=== PATIENT | male | born 1955 | race Caucasian/White ===

== ENCOUNTER 2018-03-18 11:31 | Inpatient (IN) | payer OTHER ==
[2018-03-18] VITALS (9 sets, daily range): BP systolic 131–171; BP diastolic 72–95
[~2018-03-18] VITALS: Ht 190.5 cm; Wt 197.4 kg
[2018-03-18] MEDS ORDERED: RT-ALBUTEROL SULF 2.5 MG/3 ML PRE-MIX VIAL ONE (11:42)
[2018-03-18] MEDS ORDERED: RT-ALBUTEROL/IPRATROPIUM 3 ML (DUONEB) VIAL ONE (11:42)
[2018-03-18] MEDS ORDERED: methylPREDNISolone 125 MG (Solu-MEDROL) VIAL IV STA (11:45)
[2018-03-18] MEDS ORDERED: RT-IPRATROPIUM (ATROVENT) 0.5MG/2.5ML AMP IH ONE (11:45)
[2018-03-18] MEDS ORDERED: RT-ALBUTEROL SULF 2.5 MG/3 ML PRE-MIX VIAL INH STA (11:45)
--- NOTE | 2018-03-18 11:51 | ED Respiratory ---
General Stated Complaint: SOB Source: patient Exam Limitations: no limitations (DARINEL HENDERSON MD) History of Present Illness Date Seen by Provider: Mar 18, 2018 Time Seen by Provider: 11:38 Initial Comments Here by EMS with acute respiratory failure. Showed up at his doctor's office and had O2 sat at 70 percent. Placed on oxygen and then mask and was given DuoNeb. This did not significant changes oxygen. EMS was summoned. Patient was found to have O2 sats in the 80s. Ultimately EMS gave another treatment and initiated CPAP which did improve his oxygenation. Patient reports he had fevers last night and has had increasing cough and respiratory problems. Denies nausea or vomiting. Does smoke and continues to smoke. Has lower extremity edema but states it is not different than typical. Does complain of a sore in his mouth. Timing/Duration: yesterday, getting worse Severity: moderate, severe Prior Episodes/Possible Cause: occasional episodes Modifying Factors: Improves With Albuterol Nebulizer, Improves With Oxygen, Improves With Rest Associated Symptoms: No chest pain/soreness; cough, fever/chills; No headache; nasal congestion, nasal drainage, shortness of breath, wheezing (DARINEL HENDERSON MD) Allergies and Home Medications Allergies Coded Allergies: Penicillins (Verified Allergy, Unknown, 03/18/18) amitriptyline (Verified Allergy, Unknown, 03/18/18) iodine (Verified Allergy, Unknown, 03/18/18) Patient Home Medication List Home Medication List Reviewed: Yes (DARINEL HENDERSON MD) Review of Systems Review of Systems Constitutional: see HPI; No chills; fever EENTM: see HPI, nose congestion; No throat pain Respiratory: cough, short of breath, wheezing Cardiovascular: No chest pain; edema Gastrointestinal: No abdominal pain, No nausea, No vomiting Genitourinary: no symptoms reported Musculoskeletal: no symptoms reported Skin: no symptoms reported (DARINEL HENDERSON MD) All Other Systems Reviewed Negative Unless Noted: Yes (DARINEL HENDERSON MD) Past Pcthfqp-Xrtlgu-Sewlci Hx Past Med/Social Hx: Reviewed Nursing Past Med/Soc Hx (DARINEL HENDERSON MD) Patient Social History Alcohol Use: Denies Use Recreational Drug Use: No Smoking Status: Current Everyday Smoker Recent Foreign Travel: No Contact w/Someone Who Travel: No (DARINEL HENEDRSON MD) Family Medical History Reviewed Nursing Family Hx (DARINEL HENDERSON MD) No Pertinent Family Hx (DARINEL HENDERSON MD) Physical Exam Vital Signs - First Documented 03/18/18 03/18/18 11:38 12:05 Temp 97.8 Pulse 66 Resp 30 B/P (MAP) 106/69 (81) Pulse Ox 100 O2 Delivery NIV Bilevel O2 Flow Rate 35.00 FiO2 35 (LEELA JO APRN) Capillary Refill : (DARINEL HENDERSON MD) Height: '" Weight: lbs. oz. kg; BMI Method: General Appearance: WD/WN, moderate distress, obese HEENT: PERRL/EOMI, pharynx normal Neck: full range of motion, supple Respiratory: decreased breath sounds, wheezing, expiration, inspiration Cardiovascular: regular rate, rhythm, no murmur Gastrointestinal: non tender, soft Extremities: non-tender, normal inspection Neurologic/Psychiatric: alert, oriented x 3 Skin: normal color, warm/dry (DARINEL HENDERSON MD) Focused Exam Lactate Level 03/18/18 12:05: Lactic Acid Level 1.10 (LEELA JO APRN) Lactic Acid Level Laboratory Tests Test 03/18/18 12:05 Lactic Acid Level 1.10 MMOL/L (0.50-2.00) (LEELA JO APRN) Progress/Results/Core Measures Suspected Sepsis SIRS Temperature: Pulse: Respiratory Rate: Laboratory Tests 03/18/18 11:45: Blood Pressure / Mean: 03/18/18 11:45: Laboratory Tests 03/18/18 11:45: (DARINEL HENDERSON MD) Results/Orders Lab Results Laboratory Tests Test 03/18/18 11:45 03/18/18 11:51 03/18/18 12:05 03/18/18 12:20 Range/Units White Blood Count 13.2 H 4.3-11.0 10^3/uL Red Blood Count 5.00 4.35-5.85 10^6/uL Hemoglobin 13.3 13.3-17.7 G/DL Hematocrit 42 40-54 % Mean Corpuscular Volume 83 80-99 FL Mean Corpuscular Hemoglobin 27 25-34 PG Mean Corpuscular Hemoglobin Concent 32 32-36 G/DL Red Cell Distribution Width 15.7 H 10.0-14.5 % Platelet Count 350 130-400 10^3/uL Mean Platelet Volume 9.5 7.4-10.4 FL Neutrophils (%) (Auto) 86 H 42-75 % Lymphocytes (%) (Auto) 5 L 12-44 % Monocytes (%) (Auto) 8 0-12 % Eosinophils (%) (Auto) 1 0-10 % Basophils (%) (Auto) 0 0-10 % Neutrophils # (Auto) 11.3 H 1.8-7.8 X 10^3 Lymphocytes # (Auto) 0.7 L 1.0-4.0 X 10^3 Monocytes # (Auto) 1.1 H 0.0-1.0 X 10^3 Eosinophils # (Auto) 0.1 0.0-0.3 10^3/uL Basophils # (Auto) 0.0 0.0-0.1 10^3/uL Neutrophils % (Manual) 82 % Lymphocytes % (Manual) 6 % Monocytes % (Manual) 7 % Eosinophils % (Manual) 0 % Basophils % (Manual) 0 % Band Neutrophils 5 % Blood Morphology Comment NORMAL Prothrombin Time 13.6 12.2-14.7 SEC INR Comment 1.0 0.8-1.4 Activated Partial Thromboplast Time 33 24-35 SEC Blood Gas Puncture Site RRAD Blood Gas Patient Temperature 97.8 Arterial Blood pH 7.32 *L 7.37-7.43 Arterial Blood Partial Pressure CO2 52 H 35-45 MMHG Arterial Blood Partial Pressure O2 84 79-93 MMHG Arterial Blood HCO3 26 23-27 MMOL/L Arterial Blood Total CO2 27.8 21.0-31.0 MMOL/L Arterial Blood Oxygen Saturation 97 94-100 % Arterial Blood Base Excess 0.7 -2.5-2.5 MMOL/L Corky Test Y Blood Gas Ventilator Setting NO Blood Gas Inspired Oxygen 40% Lactic Acid Level 1.10 0.50-2.00 MMOL/L Sodium Level 129 L 135-145 MMOL/L Potassium Level 5.0 3.6-5.0 MMOL/L Chloride Level 94 L 98-107 MMOL/L Carbon Dioxide Level 27 21-32 MMOL/L Anion Gap 8 5-14 MMOL/L Blood Urea Nitrogen 13 7-18 MG/DL Creatinine 0.96 0.60-1.30 MG/DL Estimat Glomerular Filtration Rate > 60 BUN/Creatinine Ratio 14 Glucose Level 113 H 70-105 MG/DL Calcium Level 8.5 8.5-10.1 MG/DL Corrected Calcium 9.0 8.5-10.1 MG/DL Total Bilirubin 0.7 0.1-1.0 MG/DL Aspartate Amino Transf (AST/SGOT) 14 5-34 U/L Alanine Aminotransferase (ALT/SGPT) 11 0-55 U/L Alkaline Phosphatase 154 H 40-136 U/L B-Type Natriuretic Peptide 56.8 <100.0 PG/ML Total Protein 7.3 6.4-8.2 GM/DL Albumin 3.4 3.2-4.5 GM/DL (LEELA JO APRN) Micro Results Microbiology 03/18/18 Influenza Types A,B Antigen (DASHA) - Final, Complete (LEELA JO APRN) My Orders Orders - LEELA JO APRN Albuterol Pre-Mix Nebs (Rt) (Proventil (03/18/18 12:45) Svn Small Volume Nebulizer (03/18/18 12:34) (LEELA JO APRN) Medications Given in ED Current Medications Medications Dose Ordered Sig/Mima Route Start Time Stop Time Status Last Admin Dose Admin Albuterol/ Ipratropium 3 ml STK-MED ONCE .ROUTE 03/18/18 11:42 03/18/18 11:45 DC 03/18/18 12:04 3 ML (LEELA JO APRN) Vital Signs/I&O 03/18/18 03/18/18 03/18/18 11:38 11:38 12:05 Temp 97.8 Pulse 66 70 Resp 30 30 B/P (MAP) 106/69 (81) Pulse Ox 100 100 98 O2 Delivery NIV Bilevel NIV/Bilevel O2 Flow Rate 35.00 FiO2 35 (LEELA JO APRN) Vital Signs/I&O Capillary Refill : (DARINEL HENDERSON MD) Progress Note : Progress Note Seen and evaluated on arrival by EMS. Converted to BiPAP at 16/8. Advised so to adjusted to keep sats greater than 94 percent. Sepsis protocol initiated including labs, chest x-ray, UA, blood cultures and lactic acid. Solu-Medrol 125 mg IV initiated. Continuous one-hour treatment initiated due to severe distress. Monitor patient. (DARINEL HEDNERSON MD) Departure Communication (Admissions) Time/Spoke to Admitting Phy: 13:04 [phone]-pt has received about 20-30 minutes of his hour-long albuterol treatment. He is moving around so much that fell off of the BiPAP and dumped on the bed. So I ordered an additional 7.5 mg of albuterol to replace the spilled portion. 1303- he does have air movement in his lungs though it is diminished and with some coarse wheezing. Cardiomegaly and vascular congestion noted on x-ray. 20 mg of Lasix IV given despite his normal BNP. Continues on BiPAP. Rocephin to be given here. I discussed the case with Dr. Bowser we will admit the patient on pneumonia protocol using Rocephin and Zithromax as he does not have any recent antibiotic prescriptions. (LEELA JO APRN) Impression Primary Impression: COPD exacerbation Additional Impressions: Right lower lobe pneumonia Qualified Codes: J18.1 - Lobar pneumonia, unspecified organism Respiratory acidosis Disposition: ADMITTED INPATIENT Condition: Stable Admissions Decision to Admit Reason: Admit from ER (General) Decision to Admit/Date: Mar 18, 2018 Time/Decision to Admit Time: 12:36 (LEELA JO APRN) Departure-Patient Inst. Referrals: NO,LOCAL PHYSICIAN (PCP/Family) Primary Care Physician DARINEL HENDERSON MD Mar 18, 2018 11:51 LEELA JO APRN Mar 18, 2018 12:36
[2018-03-18 11:55] LABS: BASOPHILS % (AUTO) 0 % (0-10); EOSINOPHILS # (AUTO) 0.1 10^3/uL (0.0-0.3); EOSINOPHILS % (AUTO) 1 % (0-10); HEMATOCRIT 42 % (40-54); HEMOGLOBIN 13.3 G/DL (13.3-17.7); LYMPHOCYTES # (AUTO) 0.7 X 10^3 (1.0-4.0); LYMPHOCYTES % (AUTO) 5 % (12-44); MEAN CORPUSCULAR HEMOGLOBIN 27 PG (25-34); MEAN CORPUSCULAR HGB CONC 32 G/DL (32-36); MEAN CORPUSCULAR VOLUME 83 FL (80-99); MEAN PLATELET VOLUME 9.5 FL (7.4-10.4); MONOCYTES # (AUTO) 1.1 X 10^3 (0.0-1.0); MONOCYTES % (AUTO) 8 % (0-12); NEUTROPHILS # (AUTO) 11.3 X 10^3 (1.8-7.8); NEUTROPHILS % (AUTO) 86 % (42-75); PLATELET COUNT 350 10^3/uL (130-400); RED CELL DISTRIBUTION WIDTH 15.7 % (10.0-14.5); WHITE BLOOD COUNT 13.2 10^3/uL (4.3-11.0)
[2018-03-18 12:09] LABS: ABG BASE EXCESS 0.7 MMOL/L (-2.5-2.5); ABG OXYGEN SATURATION 97 % (94-100); ABG PCO2 52 MMHG (35-45); ABG PO2 84 MMHG (79-93); ABG TCO2 27.8 MMOL/L (21.0-31.0)
[2018-03-18 12:10] LABS: PROTHROMBIN TIME PATIENT 13.6 SEC (12.2-14.7)
[2018-03-18 12:11] LABS: ALLENS TEST Y; INSPIRED O2 40%; PATIENT TEMP 97.8; VENTILATOR NO
[2018-03-18 12:12] LABS: ABG PH 7.32 (7.37-7.43)
[2018-03-18 12:16] LABS: BAND NEUTROPHILS 5 %; BASOPHILS % (MANUAL) 0 %; EOSINOPHILS % (MANUAL) 0 %; LYMPHOCYTES % (MANUAL) 6 %; MONOCYTES % (MANUAL) 7 %; NEUTROPHILS % (MANUAL) 82 %
[2018-03-18 12:17] LABS: RBC MORPH NORMAL
[2018-03-18 12:44] LABS: ALANINE AMINOTRANSFERASE 11 U/L (0-55); ALBUMIN 3.4 GM/DL (3.2-4.5); ALKALINE PHOSPHATASE 154 U/L (40-136); BILIRUBIN,TOTAL 0.7 MG/DL (0.1-1.0); BUN/CREATININE RATIO 14; CALCIUM 8.5 MG/DL (8.5-10.1); CARBON DIOXIDE 27 MMOL/L (21-32); CHLORIDE 94 MMOL/L (98-107); CREATININE SERUM 0.96 MG/DL (0.60-1.30); GFR ESTIMATED > 60; GLUCOSE 113 MG/DL (70-105); SODIUM 129 MMOL/L (135-145); TOTAL PROTEIN 7.3 GM/DL (6.4-8.2)
--- NOTE | 2018-03-18 12:49 | Diagnostic Imaging Report ---
EXAMINATION: Portable erect AP chest at 12:23 p.m. INDICATION: Shortness of breath. FINDINGS: There are no prior studies available for comparison. The heart is enlarged. The central pulmonary vascularity is also somewhat prominent and there may be an element of mild pulmonary congestion present. There does seem to be mild atelectasis/infiltrate in the right lung base. The lungs are otherwise clear. The mediastinum is not widened. The osseous structures are intact. IMPRESSION: There is cardiomegaly. The prominence of the central pulmonary vascularity also suggests there is an element of mild pulmonary congestion present. There may be a small amount of atelectasis/infiltrate in the right lung base as well. A followup exam should be considered for further evaluation. Dictated by: Dictated on workstation # [id number]
[2018-03-18] MEDS: RT-ALBUTEROL SULF 2.5 MG/3 ML PRE-MIX VIAL INH SCH ×2 (12:55→13:04)
[2018-03-18] MEDS ORDERED: FUROSEMIDE 40 MG/4 ML INJ (LASIX) ONE (13:40)
[2018-03-18] MEDS ORDERED: RT-ALBUTEROL/IPRATROPIUM 3 ML (DUONEB) VIAL INH PRN (14:45)
[2018-03-18] MEDS ORDERED: AZITHROMYCIN 500 MG/NS 250 ML IVPB IV SCH ×2 (15:00)
[2018-03-18] MEDS ORDERED: FLU QUADRIvalent (5+ YOA) 2018-2019 (AFLURIA) 0.5 ML IM ONE (15:15)
[2018-03-18] MEDS ORDERED: CATHETER FLUSH 10 ML SYR IV PRN (15:15)
[2018-03-18] MEDS ORDERED: NICOTINE 21 MG (NICODERM) PATCH TD SCH (15:30)
[2018-03-18] MEDS ORDERED: ACET-2267 PO (15:44)
[2018-03-18] MEDS ORDERED: FURO40TA4 PO (15:44)
[2018-03-18] MEDS ORDERED: POTA10TA10 PO (15:44)
[2018-03-18] MEDS ORDERED: SENN1TAB7 PO (15:44)
[2018-03-18] MEDS ORDERED: GABA600T2 PO (15:44)
[2018-03-18] MEDS ORDERED: ATOR80TA76 PO (15:44)
[2018-03-18] MEDS ORDERED: GLIP5TAB13 PO (15:44)
[2018-03-18] MEDS ORDERED: METO100T12 PO (15:44)
[2018-03-18] MEDS ORDERED: [UNRECOGNIZED DRUG - CODE] TP (15:44)
[2018-03-18] MEDS ORDERED: METF-399 PO (15:44)
[2018-03-18] MEDS ORDERED: ETOD500T PO (15:44)
[2018-03-18] MEDS ORDERED: INSU100V6 SQ (15:44)
[2018-03-18] MEDS ORDERED: OMEP20CA12 PO (15:44)
[2018-03-18] MEDS ORDERED: cefTRIAXone 1 GM/NS 50 ML IVPB IV SCH ×2 (16:00)
--- NOTE | 2018-03-18 16:22 | History & Physical-Hospitalist ---
History of Present Illness HPI/Chief Complaint Pt is a 62yoCM with a PMH of HTN, IDDMII, COPD who presented to the ER via EMS from Dr Blackburn's office for hypoxia. He did not provide any history and deferred to his son so he could sleep. His son states that he recently moved here as he was not doing well in [place]. He apparently drove himself to Dr Blackburn's office in his motorize wheelchair because he was SOB. He was found to be hypoxic in the 70s on room air there and placed on oxygen and given a duoneb which only improve dhis sats to the 80s. EMS was called and they placed him in CPAP and brought him to the ER where he was transitioned to BiPAP. His son states he's been sick since 03/15 with cough and orthopnea. Source: patient Date Seen 03/18/18 Time Seen by a Provider: 16:14 Attending Physician Torres Clement MD PCP No,Local Physician Referring Physician Date of Admission Mar 18, 2018 at 13:21 Home Medications & Allergies Home Medications Reviewed patient Home Medication Reconciliation performed by pharmacy medication reconciliations correctional maintenance technician and/or nursing. Patients Allergies have been reviewed. Allergies Allergies Coded Allergies Penicillins (Verified Allergy, Unknown, 03/18/18) amitriptyline (Verified Allergy, Unknown, 03/18/18) iodine (Verified Allergy, Unknown, 03/18/18) Past Awuhyhh-Pcisxb-Dkfuoi Hx Past Med/Social Hx: Reviewed Nursing Past Med/Soc Hx Patient Social History Alcohol Use: Denies Use Recreational Drug Use: No Smoking Status: Current Everyday Smoker Type Used: Cigarettes 2nd Hand Smoke Exposure: Yes Physical Abuse Screen: No Sexual Abuse: No Recent Foreign Travel: No Contact w/other who traveled: No Recent Hopitalizations: Yes Recent Infectious Disease Expo: No Immunizations Up To Date Date of Pneumonia Vaccine: Nov 28, 2016 Seasonal Allergies Seasonal Allergies: No Past Medical History Surgeries: Orthopedic Respiratory: COPD Currently Using CPAP: No Currently Using BIPAP: No Cardiac: Hypertension Musculoskeletal: Chronic Back Pain Endocrine: Diabetes, Insulin dep Are Your Blood Sugars Over 250: No Hearing Impairment: Hard of Hearing History of Blood Disorders: No (hx dvt's ) Family History Reviewed Nursing Family Hx Neoplasm G8 BROTHER daughter No Pertinent Family Hx Review of Systems ROS-Unable to Obtain: Very limited due to patient's refusal to participate Constitutional: No chills, No fever Respiratory: cough, dyspnea on exertion, orthopnea Physical Exam Physical Exam Vital Signs Vital Signs - First Documented 03/18/18 03/18/18 11:38 12:05 Temp 97.8 Pulse 66 Resp 30 B/P (MAP) 106/69 (81) Pulse Ox 100 O2 Delivery NIV Bilevel O2 Flow Rate 35.00 FiO2 35 Capillary Refill : Less Than 3 Seconds Height, Weight, BMI Height: 6'3.00" Weight: 435lbs. 3.0oz. [id number]; 54.4 BMI Method:Stated General Appearance: Chronically ill, Obese HEENT: PERRL/EOMI, Moist Mucous Membranes Neck: Non Tender, Supple Respiratory: No Respiratory Distress, Decreased Breath Sounds Cardiovascular: Regular Rate, Rhythm, No Murmur Gastrointestinal: Normal Bowel Sounds, Non Tender, Soft Extremity: Normal Capillary Refill, No Calf Tenderness Neurologic/Psychiatric: Alert, Oriented x3, Normal Mood/Affect Skin: Normal Color, Warm/Dry Results Results/Procedures Labs Laboratory Tests 03/18/18 11:45 03/18/18 12:20 Patient resulted labs reviewed. Imaging: Reviewed Imaging Report Assessment/Plan Admission Diagnosis Acute hypoxic respiratory failure Admission Status: Inpatient Order (span 2 midnights) Reason for Inpatient Admission: On BiPAP Diagnosis/Problems Diagnosis/Problems (1) Acute respiratory failure Status: Acute Assessment & Plan: On BiPAP Continue abx and steroids Will diuresis as well given vascular congestion on CXR Qualifiers: Respiratory failure complication: hypoxia and hypercapnia Qualified Codes: J96.01 - Acute respiratory failure with hypoxia; J96.02 - Acute respiratory failure with hypercapnia (2) Right lower lobe pneumonia Status: Acute Assessment & Plan: Continue CAP coverage Qualifiers: Pneumonia type: due to unspecified organism Qualified Codes: J18.1 - Lobar pneumonia, unspecified organism (3) Essential (primary) hypertension Status: Chronic Assessment & Plan: Continue on home meds (4) Insulin dependent diabetes mellitus Assessment & Plan: Continue home levemir 10U SSI (5) COPD exacerbation Status: Acute Assessment & Plan: Continue steroids On BiPAP Clinical Quality Measures DVT/VTE Risk/Contraindication: Risk Factor Score Per Nursin RFS Level Per Nursing on Admit: 4+=Very High TORRES CLEMENT MD Mar 18, 2018 16:22
[2018-03-18] MEDS ORDERED: FUROSEMIDE 40 MG/4 ML INJ (LASIX) IVP NR (16:30)
[2018-03-18 16:59] LABS: ABG BASE EXCESS 3.2 MMOL/L (-2.5-2.5); ABG OXYGEN SATURATION 96 % (94-100); ABG PCO2 60 MMHG (35-45); ABG PO2 80 MMHG (79-93)
[2018-03-18 17:00] LABS: ABG PH 7.31 (7.37-7.43); ALLENS TEST YES-POS
[2018-03-18 17:01] LABS: INSPIRED O2 40%; PATIENT TEMP 97.6; VENTILATOR NO
[2018-03-18] MEDS ORDERED: PROPOFOL DRIP (ICU) 100 ML IV ONE (17:43)
[2018-03-18] MEDS ORDERED: ENOXAPARIN 60 MG/0.6 ML (LOVENOX) SYR SC SCH (18:00)
[2018-03-18] MEDS ORDERED: methylPREDNISolone 125 MG (Solu-MEDROL) VIAL IV SCH (18:00)
[2018-03-18] MEDS ORDERED: RT-ALBUTEROL/IPRATROPIUM 3 ML (DUONEB) VIAL INH SCH (18:00)
[2018-03-18] MEDS ORDERED: PROPOFOL DRIP (ICU) 100 ML IV SCH (18:15)
--- NOTE | 2018-03-18 18:18 | Discharge Summary-Hospitalist ---
Diagnosis/Chief Complaint Date of Admission Mar 18, 2018 at 13:21 Date of Discharge Discharge Date: Mar 18, 2018 Admission Diagnosis Acute hypoxic respiratory failure Discharge Diagnosis (1) Acute respiratory failure Status: Acute Assessment & Plan: On BiPAP Continue abx and steroids Will diuresis as well given vascular congestion on CXR (2) Right lower lobe pneumonia Status: Acute Assessment & Plan: Continue CAP coverage (3) Essential (primary) hypertension Status: Chronic Assessment & Plan: Continue on home meds (4) Insulin dependent diabetes mellitus Assessment & Plan: Continue home levemir 10U SSI (5) COPD exacerbation Status: Acute Assessment & Plan: Continue steroids On BiPAP Discharge Summary Discharge Physical Exam Allergies: Coded Allergies: Penicillins (Verified Allergy, Unknown, 03/18/18) amitriptyline (Verified Allergy, Unknown, 03/18/18) iodine (Verified Allergy, Unknown, 03/18/18) Vitals & I&Os Vital Signs Date Time Temp Pulse Resp B/P (MAP) Pulse Ox O2 Delivery O2 Flow Rate FiO2 03/18/18 17:00 70 25 171/95 (120) 95 NIV Bilevel 40.00 03/18/18 16:00 97.3 03/18/18 16:00 35 General Appearance: Chronically ill, Obese Respiratory: Other (on vent) Cardiovascular: Regular Rate, Rhythm, No Murmur Gastrointestinal: Normal Bowel Sounds, Soft Neurologic/Psychiatric: Other (sedated on propofol) Hospital Course Pt is a 62yoCM with a PMH of COPD, IDDMII, and morbid obesity who presented to the ER in respiratory distress after presenting to a local PCP's office for SOB. He was found to be hypoxic in the 70s there and EMS was called. He was placed on CPAP en route to the hospital and transitioned to BiPAP in the ER. He was admitted to the ICU for respiratory failure. He was maintained on BiPAP but remained lethargic on it and repeat ABG showed worsening CO2. Decision was made to intubate at that time. Intubated was performed by Dr Moses. Due to standards analyst being out of town we discussed transfer to facility with pulmonology for vent management. I discussed this case with Dr Yarbrough at [phone] who accepted patient in transfer. He was transferred in stable condition via EMS. Labs (last 24 hrs) Laboratory Tests 03/18/18 11:45: White Blood Count 13.2H, Red Blood Count 5.00, Hemoglobin 13.3, Hematocrit 42, Mean Corpuscular Volume 83, Mean Corpuscular Hemoglobin 27, Mean Corpuscular Hemoglobin Concent 32, Red Cell Distribution Width 15.7H, Platelet Count 350, Mean Platelet Volume 9.5, Neutrophils (%) (Auto) 86H, Lymphocytes (%) (Auto) 5L , Monocytes (%) (Auto) 8, Eosinophils (%) (Auto) 1, Basophils (%) (Auto) 0, Neutrophils # (Auto) 11.3H, Lymphocytes # (Auto) 0.7L, Monocytes # (Auto) 1.1H, Eosinophils # (Auto) 0.1, Basophils # (Auto) 0.0, Neutrophils % (Manual) 82, Lymphocytes % (Manual) 6, Monocytes % (Manual) 7, Eosinophils % (Manual) 0, Basophils % (Manual) 0, Band Neutrophils 5, Blood Morphology Comment NORMAL, Prothrombin Time 13.6, INR Comment 1.0, Activated Partial Thromboplast Time 33 03/18/18 11:51: Blood Gas Puncture Site RRAD, Blood Gas Patient Temperature 97.8, Arterial Blood pH 7.32*L, Arterial Blood Partial Pressure CO2 52H, Arterial Blood Partial Pressure O2 84, Arterial Blood HCO3 26, Arterial Blood Total CO2 27.8, Arterial Blood Oxygen Saturation 97, Arterial Blood Base Excess 0.7, Corky Test Y, Blood Gas Ventilator Setting NO, Blood Gas Inspired Oxygen 40% 03/18/18 12:05: Lactic Acid Level 1.10 03/18/18 12:20: Sodium Level 129L, Potassium Level 5.0, Chloride Level 94L, Carbon Dioxide Level 27, Anion Gap 8, Blood Urea Nitrogen 13, Creatinine 0.96, Estimat Glomerular Filtration Rate > 60, BUN/Creatinine Ratio 14, Glucose Level 113H, Calcium Level 8.5, Corrected Calcium 9.0, Total Bilirubin 0.7, Aspartate Amino Transf (AST/SGOT) 14, Alanine Aminotransferase (ALT/SGPT) 11, Alkaline Phosphatase 154H, B-Type Natriuretic Peptide 56.8, Total Protein 7.3, Albumin 3.4 03/18/18 16:54: Blood Gas Puncture Site RT BRACH, Blood Gas Patient Temperature 97.6, Arterial Blood pH 7.31*L, Arterial Blood Partial Pressure CO2 60H, Arterial Blood Partial Pressure O2 80, Arterial Blood HCO3 29H, Arterial Blood Total CO2 31.0, Arterial Blood Oxygen Saturation 96, Arterial Blood Base Excess 3.2H, Corky Test YES-POS, Blood Gas Ventilator Setting NO, Blood Gas Inspired Oxygen 40% Microbiology 03/18/18 Influenza Types A,B Antigen (DASHA) - Final, Complete Patient resulted labs reviewed. Pending Labs Microbiology Date/Time Source Procedure Growth Status 03/18/18 12:20 Nasopharynx Influenza Types A,B Antigen (DASHA) - Final Complete Laboratory Tests 03/18/18 11:45: White Blood Count 13.2, Red Blood Count 5.00, Hemoglobin 13.3, Hematocrit 42, Mean Corpuscular Volume 83, Mean Corpuscular Hemoglobin 27, Mean Corpuscular Hemoglobin Concent 32, Red Cell Distribution Width 15.7, Platelet Count 350, Mean Platelet Volume 9.5, Neutrophils (%) (Auto) 86, Lymphocytes (%) (Auto) 5, Monocytes (%) (Auto) 8, Eosinophils (%) (Auto) 1, Basophils (%) (Auto) 0, Neutrophils # (Auto) 11.3, Lymphocytes # (Auto) 0.7, Monocytes # (Auto) 1.1, Eosinophils # (Auto) 0.1, Basophils # (Auto) 0.0, Neutrophils % (Manual) 82, Lymphocytes % (Manual) 6, Monocytes % (Manual) 7, Eosinophils % (Manual) 0, Basophils % (Manual) 0, Band Neutrophils 5, Blood Morphology Comment NORMAL, Prothrombin Time 13.6, INR Comment 1.0, Activated Partial Thromboplast Time 33 03/18/18 11:51: Blood Gas Puncture Site RRAD, Blood Gas Patient Temperature 97.8, Arterial Blood pH 7.32, Arterial Blood Partial Pressure CO2 52, Arterial Blood Partial Pressure O2 84, Arterial Blood HCO3 26, Arterial Blood Total CO2 27.8, Arterial Blood Oxygen Saturation 97, Arterial Blood Base Excess 0.7, Corky Test Y, Blood Gas Ventilator Setting NO, Blood Gas Inspired Oxygen 40% 03/18/18 12:05: Lactic Acid Level 1.10 03/18/18 12:20: Sodium Level 129, Potassium Level 5.0, Chloride Level 94, Carbon Dioxide Level 27, Anion Gap 8, Blood Urea Nitrogen 13, Creatinine 0.96, Estimat Glomerular Filtration Rate > 60, BUN/Creatinine Ratio 14, Glucose Level 113, Calcium Level 8.5, Corrected Calcium 9.0, Total Bilirubin 0.7, Aspartate Amino Transf (AST/ SGOT) 14, Alanine Aminotransferase (ALT/SGPT) 11, Alkaline Phosphatase 154, B- Type Natriuretic Peptide 56.8, Total Protein 7.3, Albumin 3.4 03/18/18 16:54: Blood Gas Puncture Site RT BRACH, Blood Gas Patient Temperature 97.6, Arterial Blood pH 7.31, Arterial Blood Partial Pressure CO2 60, Arterial Blood Partial Pressure O2 80, Arterial Blood HCO3 29, Arterial Blood Total CO2 31.0, Arterial Blood Oxygen Saturation 96, Arterial Blood Base Excess 3.2, Corky Test YES-POS, Blood Gas Ventilator Setting NO, Blood Gas Inspired Oxygen 40% Imaging: Reviewed Imaging Report Discussion & Recommendations Discharge Planning: >30 minutes discharge planning Discharge Home Medications: Active Scripts Active Reported Docusate Sodium-Senna Tablet (Sennosides/Docusate Sodium) 1 Each Tablet 1 Tab PO BID Lantus (Insulin Glargine,Hum.rec.anlog) 100 Unit/1 Ml Vial 10 Unit SQ DAILY Moisturizing Lotion (Vit E Acetate/Gly/Dimeth/Water) 473 Ml Lotion TP DAILY Potassium Chloride 10 Meq Tablet.er 20 Meq PO BID TAKES 2 (10MEQ) TABLETS Omeprazole 20 Mg Capsule.dr 20 Mg PO BID Metoprolol Tartrate 100 Mg Tablet 50 Mg PO BID TAKES 1/2 (100MG) TABLET Metformin HCl 1,000 Mg Tablet 1,000 Mg PO BID Glipizide 5 Mg Tablet 15 Mg PO BID TAKES 3 (5MG) TABLETS Gabapentin 600 Mg Tablet 600 Mg PO TID Furosemide 40 Mg Tablet 40 Mg PO 0800,1200 Etodolac 500 Mg Tablet 500 Mg PO TID PRN Atorvastatin Calcium 80 Mg Tablet 80 Mg PO HS Tylenol Extra Strength (Acetaminophen) 500 Mg Tablet 1,000 Mg PO Q6H PRN Instructions to patient/family Please see electronic discharge instructions given to patient. Clinical Quality Measures DVT/VTE Risk/Contraindication: Risk Factor Score Per Nursin RFS Level Per Nursing on Admit: 4+=Very High Problem Qualifiers (1) Acute respiratory failure: Respiratory failure complication: hypoxia and hypercapnia Qualified Codes: J96.01 - Acute respiratory failure with hypoxia; J96.02 - Acute respiratory failure with hypercapnia (2) Right lower lobe pneumonia: Pneumonia type: due to unspecified organism Qualified Codes: J18.1 - Lobar pneumonia, unspecified organism TORRES OLSEN MD Mar 18, 2018 18:18
--- NOTE | 2018-03-18 18:35 | Procedure/Intervention Note ---
Procedure Note Vital Signs Vital Signs Date Time Temp Pulse Resp B/P (MAP) Pulse Ox O2 Delivery O2 Flow Rate FiO2 03/18/18 17:00 70 25 171/95 (120) 95 NIV Bilevel 40.00 03/18/18 16:00 97.3 03/18/18 16:00 35 Procedure Note Called emergently to ICU 94 patient and wraps for distress requiring intubation. Patient was seen by me earlier. Noted to have increasing CO2 and declining PO2 on ABG. I did discuss at length with the patient and family regarding intubation. Initially earlier he did not want intubation but patient has been intubated multiple times in the past per he and the family. On further discussion with the patient, he reports that he does not want to have intubation and long-term but is okay with short-term intubation for treatment of medical condition. Currently he has pneumonia and Bi-PAP is not improving his situation with concerns of further worsening of his pneumonia. This was explained to him and the family and he has elected for intubation. Intubated under emergent condition for respiratory failure Patient will be difficult intubation due to body habitus, large neck and tongue. Intubated via video scope with 8.0 tube at 26 cm at the lips with mild difficulty. Patient's O2 saturations remained 100 percent throughout intubation. Sedation with 20 mg of etomidate and paralytic with 200 mg of succinylcholine. Postintubation sedation with 5 mg of Versed IV and 100 mg of fentanyl IV. 50 mg of rocuronium given until transfer to propofol drip with initial 40 mg bolus and titrated to sedation. Tolerated procedure well with no complications. Postintubation chest x-ray performed. Tube in good position. NG tube in good position. Worsening lung markings noted bilaterally. DARINEL HENDERSON MD Mar 18, 2018 18:35
--- NOTE | 2018-03-18 18:50 | Diagnostic Imaging Report ---
Clinical indication: Patient post intubation. Exam: Portable chest x-ray supine view. Comparison: Portable chest x-ray dated 03/18/2018. Findings: There is stable cardiomegaly with pulmonary vascular congestion. There is patchy airspace opacities throughout both lungs which has increased in the bilateral lung apical regions which may represent lung infiltrates. The right costophrenic angle region is not imaged on this exam and can't be evaluated. There is no pleural effusion as visualized. Interval placement of ET tube with tip seen at the T4 level. Orogastric feeding tube is noted which is below the level of the diaphragm distally with its distal portion not completely visualized. The remainder of this exam shows no significant interval change compared to the prior study of comparison. Impression: 1: Interval placement of ET tube and orogastric feeding tube which appear to be in good position. 2: There is interval progression of bilateral lung airspace opacity/infiltrates. 3: Again seen cardiomegaly with pulmonary vascular congestion. Dictated by: Dictated on workstation # [id number]
[2018-03-18 18:52] LABS: CLARITY,URINE SLIGHTLY CLOUDY; COLOR,URINE YELLOW; GLUCOSE, URINE (UA) NEGATIVE (NEGATIVE); KETONES,URINE NEGATIVE (NEGATIVE); LEUKOCYTE ESTERASE ,URINE NEGATIVE (NEGATIVE); NITRITE,URINE NEGATIVE (NEGATIVE); PH,URINE 5 (5-9); PROTEIN,URINE 2+ (NEGATIVE); UROBILINOGEN,URINE NORMAL (NORMAL)
[2018-03-18 19:04] LABS: BILIRUBIN,URINE 2+ (NEGATIVE)
[2018-03-18 19:05] LABS: BACTERIA,URINE NEGATIVE /HPF; RBC,URINE RARE /HPF; WBC,URINE RARE /HPF
[2018-03-18] MEDS ORDERED: fentaNYL INJECTION 1,250 MCG in NS (IVPB) 250 ML IV SCH (19:30)
[2018-03-18] MEDS ORDERED: ETOMIDATE IV SOLN 20 MG/10 ML VIAL IV ONE (20:54)
[2018-03-18] MEDS ORDERED: MIDAZOLAM 5 MG/5 ML (VERSED) VIAL INJ ONE (20:54)
[2018-03-18] MEDS ORDERED: SUCCINYLCHOLINE INJ 100 MG/5 ML SYR INJ ONE (20:54)
[2018-03-18] MEDS ORDERED: inSUlin ASPART (NovoLOG) 1 UNIT/0.01 ML (CHARGE PER UNIT) SC SCH (21:00)
[2018-03-18] MEDS ORDERED: inSUlin DETERMIR 1 UNIT/0.01 ML (LEVEMIR) CHARGE PER UNIT SQ SCH (21:00)
[2018-03-18] MEDS ORDERED: CATHETER FLUSH 10 ML SYR IV SCH (22:00)
[2018-03-19] MEDS ORDERED: NICOTINE PATCH REMOVAL TP SCH (08:59)
== END 2018-03-18 20:55 | disposition short-term general hospital (02) | DRG 189 ==
LOC: EDUNIT# 11:31 → ER 11:38 → ICU 13:21
PROVIDERS: ADMIT Family Medicine; ATTEND Family Medicine
DX: J96.01 Acute respiratory failure with hypoxia (principal); J18.1 Lobar pneumonia, unspecified organism; J44.1 Chronic obstructive pulmonary disease with (acute) exacerbation; J44.0 Chronic obstructive pulmonary disease with (acute) lower respiratory infection; Z68.43 Body mass index [BMI] 50.0-59.9, adult; Z66 Do not resuscitate; I10 Essential (primary) hypertension; E11.9 Type 2 diabetes mellitus without complications; E66.01 Morbid (severe) obesity due to excess calories; Z79.4 Long term (current) use of insulin; Z88.0 Allergy status to penicillin; F17.210 Nicotine dependence, cigarettes, uncomplicated
CPT/HCPCS: 36415; 71045; 80053; 81000; 82805; 83605; 83880; 84478; 85007; 85027; 85610; 85730; 87040; 87070; 87081; 87088; 87205; 87804; 94002; 94640; 94660; 94799; 96374; 96375

== ENCOUNTER 2019-05-04 17:58 | Inpatient (IN) | payer MEDICARE, OTHER ==
[~2019-05-04] VITALS: Ht 190.5 cm; Wt 197.4 kg
[~2019-05-04 17:58] MED LIST: ACET-2267 PO; ATOR80TA76 PO; ETOD500T PO; FURO40TA4 PO; GBPN600T PO; GLIP5TAB13 PO; INSU100V6 SQ; METF-399 PO; METO100T12 PO; OMEP-280 PO; POTA10TA10 PO; SENN-229 PO; [UNRECOGNIZED DRUG - CODE] TP
[2019-05-04 18:14] LABS: BASOPHILS % (AUTO) 0 % (0-10); EOSINOPHILS # (AUTO) 0.1 10^3/uL (0.0-0.3); EOSINOPHILS % (AUTO) 1 % (0-10); HEMATOCRIT 40 % (40-54); HEMOGLOBIN 13.7 G/DL (13.3-17.7); LYMPHOCYTES # (AUTO) 1.7 X 10^3 (1.0-4.0); LYMPHOCYTES % (AUTO) 15 % (12-44); MEAN CORPUSCULAR HEMOGLOBIN 31 PG (25-34); MEAN CORPUSCULAR HGB CONC 34 G/DL (32-36); MEAN CORPUSCULAR VOLUME 92 FL (80-99); MEAN PLATELET VOLUME 9.1 FL (7.4-10.4); MONOCYTES # (AUTO) 0.9 X 10^3 (0.0-1.0); MONOCYTES % (AUTO) 8 % (0-12); NEUTROPHILS # (AUTO) 8.3 X 10^3 (1.8-7.8); NEUTROPHILS % (AUTO) 75 % (42-75); PLATELET COUNT 297 10^3/uL (130-400); RED CELL DISTRIBUTION WIDTH 15.2 % (10.0-14.5)
[2019-05-04] MEDS ORDERED: methylPREDNISolone 125 MG (Solu-MEDROL) VIAL IV STA (18:21)
[2019-05-04] MEDS ORDERED: NS IV 1000 ML 1,000 ML IV ONE (18:21)
[2019-05-04] MEDS ORDERED: RT-ALBUTEROL/IPRATROPIUM 3 ML (DUONEB) VIAL INH ONE (18:30)
[2019-05-04] MEDS ORDERED: DEXAMETHASONE 4 MG/ML SDV (DECADRON) IH ONE (18:30)
[2019-05-04 18:39] LABS: ALANINE AMINOTRANSFERASE 12 U/L (0-55); ALBUMIN 3.6 GM/DL (3.2-4.5); ALKALINE PHOSPHATASE 119 U/L (40-136); BILIRUBIN,TOTAL 0.4 MG/DL (0.1-1.0); BUN/CREATININE RATIO 10; CALCIUM 8.9 MG/DL (8.5-10.1); CARBON DIOXIDE 26 MMOL/L (21-32); CHLORIDE 93 MMOL/L (98-107); CREATININE SERUM 0.71 MG/DL (0.60-1.30); GFR ESTIMATED > 60; GLUCOSE 181 MG/DL (70-105); MAGNESIUM 1.6 MG/DL (1.6-2.4); POTASSIUM 4.1 MMOL/L (3.6-5.0); SODIUM 129 MMOL/L (135-145)
[2019-05-04 18:40] LABS: CREATINE KINASE 46 U/L (30-200)
[2019-05-04 18:45] LABS: INR 0.9 (0.8-1.4); PROTHROMBIN TIME PATIENT 12.9 SEC (12.2-14.7)
[2019-05-04 18:47] LABS: BILIRUBIN,URINE NEGATIVE (NEGATIVE); CLARITY,URINE CLEAR; COLOR,URINE YELLOW; GLUCOSE, URINE (UA) NEGATIVE (NEGATIVE); KETONES,URINE NEGATIVE (NEGATIVE); LEUKOCYTE ESTERASE ,URINE NEGATIVE (NEGATIVE); NITRITE,URINE NEGATIVE (NEGATIVE); PH,URINE 6.5 (5-9); PROTEIN,URINE TRACE (NEGATIVE)
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
[2019-05-04 18:54] LABS: BACTERIA,URINE TRACE /HPF; HYALINE CASTS, URINE RARE /LPF; SQUAMOUS EPITHELIAL CELL,UR RARE /HPF
[2019-05-04 18:59] LABS: AMPHETAMINE SCREEN, URINE NEGATIVE (NEGATIVE); BARBITURATE SCREEN URINE NEGATIVE (NEGATIVE); BENZODIAZEPINES SCREEN URINE NEGATIVE (NEGATIVE); CANNABINOID SCREEN, URINE NEGATIVE (NEGATIVE); COCAINE SCREEN URINE NEGATIVE (NEGATIVE); METHADONE STAT NEGATIVE (NEGATIVE); METHAMPHETAMINE SCREEN URINE S NEGATIVE (NEGATIVE); OPIATE SCREEN URINE NEGATIVE (NEGATIVE); OXYCODONE STAT NEGATIVE (NEGATIVE); PROPOXYPHENE STAT NEGATIVE (NEGATIVE); TRICYCLIC ANTIDEPRESSANTS SCRE POSITIVE (NEGATIVE)
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
--- NOTE | 2019-05-04 19:31 | Diagnostic Imaging Report ---
PROCEDURE: CT thoracic and lumbar spine without contrast. TECHNIQUE: Multiple contiguous axial images were obtained through the thoracic and lumbar spine without the use of intravenous contrast. Sagittal and coronal reformations were then performed. INDICATION: Fall. Bilateral hip and back pain. COMPARISON: None. FINDINGS: Mild reversal of the normal lumbar lordosis. Minimal retrolisthesis of L3 on L4 and L4 on L5. Alignment is otherwise normal. Chronic height loss of L2 due to a Schmorl's node. Vertebral body heights are otherwise preserved. No acute fracture. Moderate to advanced degenerative endplate changes at L2-L5. No high-grade spinal canal narrowing is evident on soft tissue windows. Moderate atherosclerotic calcifications including a normal caliber abdominal aorta. Calcified granulomas in the partially visualized lungs. The visualized paravertebral soft tissues are otherwise unremarkable. The visualized pelvis is intact. IMPRESSION: No acute CT findings in the thoracic or lumbar spine. Chronic findings as above. Dictated by: Dictated on workstation # [id number]
--- NOTE | 2019-05-04 19:49 | Diagnostic Imaging Report ---
EXAM: CHEST 1 VIEW, AP/PA ONLY INDICATION: Fall. COMPARISON: 03/18/2018. FINDINGS: Interval removal of the ETT and NGT. Cardiomegaly with pulmonary vascular congestion is similar to the prior exam. No new focal pulmonary opacity. No pleural effusion or pneumothorax. No acute osseous findings. IMPRESSION: Stable cardiomegaly and pulmonary vascular congestion. No acute findings. Dictated by: Dictated on workstation # [id number]
--- NOTE | 2019-05-04 20:03 | Diagnostic Imaging Report ---
PROCEDURE: CT pelvis without contrast. TECHNIQUE: Multiple contiguous axial images were obtained through the pelvis without the use of intravenous contrast. Sagittal and coronal reformations were performed. Auto Exposure Controls were utilized during the CT exam to meet ALARA standards for radiation dose reduction. INDICATION: Fall, pain. COMPARISON: Imaging from same date. FINDINGS: A left total hip arthroplasty is present. Superior dislocation of the left hip arthroplasty is present. However, the femoral component appears to be within the left supra-acetabular region and has reformed the adjacent pelvis and there appears to be surrounding overlying heterotopic ossification. Severe degenerative changes of the right hip are noted with severe joint space narrowing, moderate osteophyte formation, slight flattening of the femoral head and significant subchondral cyst formation. The sacroiliac joints are intact. The pubic symphysis is intact. Quijano catheter is in place. IMPRESSION: 1. Superior dislocation of a left total hip arthroplasty. However, given appearance, it is felt that this is chronic in nature. 2. Severe end-stage degenerative changes of the right hip joint. 3. No acute fracture. Dictated by: Dictated on workstation # [id number]
[2019-05-04] MEDS ORDERED: ENOXAPARIN 100 MG/1 ML (LOVENOX) SYR SC ONE (20:45)
[2019-05-04] MEDS ORDERED: ENOXAPARIN 80 MG/0.8 ML (LOVENOX) SYR SC ONE (20:45)
--- NOTE | 2019-05-04 21:30 | NUR ---
YUMIKO RODRIGUEZ admitted to room 408-1, with an admitting diagnosis of COPD AND RECENT FALL, on 05/04/19 from ED, accompanied by STAFF. YUMIKO RODRIGUEZ introduced to surroundings, call light, bed controls, phone, TV, temperature control, lights, meal times, smoking policy, visitor policy, side rail policy, bathrooms and showers. Patient Rights given to patient in the handbook. YUMIKO RODRIGUEZ verbalizes understanding that [facility] is not responsible for the loss or damage to any personal effects or valuables that are kept in the patients posession during their hospitalization. YUMIKO RODRIGUEZ verbalizes understanding of Interdisciplinary Patient Education. Patient and/or family were informed about the Rapid Response Team and its purpose.
[2019-05-04 22:26] VITALS: BP 174/92
[2019-05-04] MEDS ORDERED: CATHETER FLUSH 10 ML SYR IV PRN (22:30)
[2019-05-05] VITALS (7 sets, daily range): BP systolic 90–196; BP diastolic 55–92
[2019-05-05] MEDS: NS IV 1000 ML 1,000 ML IV SCH ×3 (00:20→20:50)
[2019-05-05] MEDS: methylPREDNISolone 125 MG (Solu-MEDROL) VIAL IV SCH ×2 (00:20→05:41)
[2019-05-05] MEDS: fentaNYL INJECTION 100 MCG/2 ML AMP IV PRN ×2 (00:29→21:58)
--- NOTE | 2019-05-05 01:13 | NUR ---
MARYANA WALTON/ELIAS TAN RT TO ASSESS OR REEVALUATE IN 72 HOURS OR NEEDED. O2 TO KEEP SAT GREATER THAN 90% Addendum: 05/05/19 at 0113 by ALEXA MCKENZIE RT Amended: Links added.
[2019-05-05] MEDS ORDERED: RT-ALBUTEROL/IPRATROPIUM 3 ML (DUONEB) VIAL INH PRN (01:15)
[2019-05-05] MEDS: inSUlin ASPART (NovoLOG) 1 UNIT/0.01 ML (CHARGE PER UNIT) SC SCH ×4 (05:41→21:11)
[2019-05-05] MEDS: CATHETER FLUSH 10 ML SYR IV SCH ×3 (05:42→21:12)
[2019-05-05 07:12] LABS: BASOPHILS % (AUTO) 0 % (0-10); EOSINOPHILS % (AUTO) 0 % (0-10); HEMATOCRIT 42 % (40-54); HEMOGLOBIN 13.9 G/DL (13.3-17.7); LYMPHOCYTES # (AUTO) 0.4 X 10^3 (1.0-4.0); LYMPHOCYTES % (AUTO) 3 % (12-44); MEAN CORPUSCULAR HEMOGLOBIN 30 PG (25-34); MEAN CORPUSCULAR HGB CONC 33 G/DL (32-36); MEAN CORPUSCULAR VOLUME 91 FL (80-99); MEAN PLATELET VOLUME 9.6 FL (7.4-10.4); MONOCYTES # (AUTO) 0.1 X 10^3 (0.0-1.0); MONOCYTES % (AUTO) 1 % (0-12); NEUTROPHILS # (AUTO) 12.3 X 10^3 (1.8-7.8); NEUTROPHILS % (AUTO) 96 % (42-75); PLATELET COUNT 265 10^3/uL (130-400); RED CELL DISTRIBUTION WIDTH 15.3 % (10.0-14.5); WHITE BLOOD COUNT 12.9 10^3/uL (4.3-11.0)
[2019-05-05] MEDS ORDERED: predniSONE 20 MG TAB PO ONE (07:30)
[2019-05-05 07:39] LABS: ALANINE AMINOTRANSFERASE 9 U/L (0-55); ALBUMIN 3.4 GM/DL (3.2-4.5); ALKALINE PHOSPHATASE 118 U/L (40-136); BILIRUBIN,TOTAL 0.5 MG/DL (0.1-1.0); BUN/CREATININE RATIO 10; CALCIUM 8.8 MG/DL (8.5-10.1); CARBON DIOXIDE 24 MMOL/L (21-32); CHLORIDE 97 MMOL/L (98-107); CREATININE SERUM 0.67 MG/DL (0.60-1.30); GFR ESTIMATED > 60; GLUCOSE 289 MG/DL (70-105); POTASSIUM 4.5 MMOL/L (3.6-5.0); SODIUM 131 MMOL/L (135-145); TOTAL PROTEIN 6.8 GM/DL (6.4-8.2)
--- NOTE | 2019-05-05 07:52 | Diagnostic Imaging Report ---
Clinical indication: Patient with COPD. Exam: Portable chest x-ray upright view. Comparisons: Chest x-ray dated 05/04/2019. Findings: There is stable cardiomegaly and minimal pulmonary vascular congestion. There is mild bibasilar atelectasis versus infiltrate (right side more than the left) which is not significantly changed in the interim. There is no pleural effusion or pneumothorax. The remainder of this exam shows no significant interval change compared to the prior study of comparison. IMPRESSION: 1.: Stable chest x-ray exam with cardiomegaly and mild pulmonary vascular congestion. 2: Mild bibasilar atelectasis versus infiltrates. Dictated by: Dictated on workstation # [id number]
[2019-05-05 08:08] LABS: BAND NEUTROPHILS 0 %; BASOPHILS % (MANUAL) 0 %; EOSINOPHILS % (MANUAL) 0 %; LYMPHOCYTES % (MANUAL) 1 %; MONOCYTES % (MANUAL) 1 %; NEUTROPHILS % (MANUAL) 98 %; RBC MORPH NORMAL
[2019-05-05] MEDS: RT-ALBUTEROL/IPRATROPIUM 3 ML (DUONEB) VIAL INH SCH ×3 (08:37→18:42)
[2019-05-05] MEDS: ENOXAPARIN 60 MG/0.6 ML (LOVENOX) SYR SC SCH ×2 (08:48→20:50)
[2019-05-05] MEDS ORDERED: ENOXAPARIN 80 MG/0.8 ML (LOVENOX) SYR SC SCH (09:00)
--- NOTE | 2019-05-05 10:36 | Physical Therapy Evaluation ---
PT Evaluation-General Medical Diagnosis Admission Date May 04, 2019 at 19:48 Medical Diagnosis: chronic hip dislocation Onset Date: May 04, 2019 Therapy Diagnosis Therapy Diagnosis: debility Height/Weight Height (Feet): 6 Height (Inches): 3.00 Weight (Pounds): 435 Weight (Ounces): 3.0 Precautions Precautions/Isolations: Fall Prevention, Standard Precautions Referral Physician: Mason Reason for Referral: Evaluation/Treatment Medical History Pertinent Medical History: Alcoholism, DM, HTN, Neuropathy, Smoking Additional Medical History chronic left hip dislocation/non ambulatory x several years Current History ER via EMS secondary to fall out of power chair Reviewed History: Yes Social History Home: Apartment Current Living Status: Alone Entry Into Home: Level Entry Prior Prior Level of Function SCALE: Activities may be completed with or without assistive devices. 1-Fieytkwiya-mmicgfd completes the activity by him/herself with no assistance from a helper. 5-Set-up or Clean-up Assistance-helper sets up or cleans up; patient completes activity. Troy assists only prior to or following the activity. 4-Supervision or Touching Assistance-helper provides verbal cues and/or touching/steadying and/or contact guard assistance as patient completes activity. Assistance may be provided throughout the activity or intermittently. 3-Partial/Moderate Assistance-helper does LESS THAN HALF the effort. Troy lifts, holds or supports trunk or limbs, but provides less than half the effort. 2-Substantial/Maximal Assistance-helper does MORE THAN HALF the effort. Troy lifts or holds trunk or limbs and provides more than half the effort. 3-Njqtupfux-gbcgue does ALL the effort. Patient does none of the effort to complete the activity. Or, the assistance of 2 or more helpers is required for the patient to complete the activity. If activity was not attempted, code reason: 7-Patient Refused. 9-Not Applicable-not attempted and the patient did not perform the activity before the current illness, exacerbation or injury. 10-Not Attempted due to Environmental Limitations-(lack of equipment, weather restraints, etc.). 88-Not Attempted due to Medical Conditions or Safety Concerns. Bed Mobility: 6 Transfers (B,C,W/C): 6 Gait: 9 Stairs: 9 Wheelchair Mobility: 6 Indoor Mobility (Ambulation): Not Applicalbe Stairs: Not Applicalbe Prior Devices Use: Motorized wheelchair nonambulatory PLOF/scoot from bed to power chair for mobility PT Evaluation-Current Subjective Patient agrees to PT. Pain Numeric Pain Scale: 0-No Pain Location: No Pain Reported Objective Patient Orientation: Normal For Age Attachments: Oxygen, Quijano Catheter ROM/Strength ROM Lower Extremities right LE WFL/left LE functional, however, limited due to chronic dislocation Strength Lower Extremities right LE 3-/5 grossly/left LE 2-/5 grossly Integumentary/Posture Integumentary refer to nursing notes Bladder Incontinence: Quijano Cath Neuromuscular (Tone, Coordination, Reflexes) diminished due to inactivity PLOF Sensory Vision: Functional Hearing: Functional Sensation Right Lower Extremit: Impaired Sensation Left Lower Extremity: Impaired Transfers Roll Left to Right (QC): 5 declined sitting EOB/use Polo lift for safety Gait Does the Patient Walk?: No and Walking Goal NOT indicated Wheelchair Training Does the Pt Use a Wheelchair?: Yes Assessment/Needs 63 y.o. male, will be seen short term by skilled PT to address functional strength. Patient is w/c bound PLOF and non ambulatory. Patient reports he has a "bucket" he urinates in at home. Rehab Potential: Poor PT [employer] Therapist Goals Mcc Goals PT Mcc Goals Time Frame: May 14, 2019 Roll Left & Right (QC): 5 Sit to Lying (QC): 5 Lying-Sitting on Side/Bed(QC): 5 Sit to Stand (QC): 9 Chair/Rdy-by-Ukdtj Xfer(QC): 5 Toilet Transfer (QC): 5 (drop arm commode) Does the Patient Walk: No and Walking Goal NOT indicated PT Plan Problem List Problem List: Activity Tolerance, Functional Strength, Safety, Balance, Transfer, Bed Mobility, ROM Treatment/Plan Treatment Plan: Continue Plan of Care Treatment Plan: Bed Mobility, Education, Functional Activity Edgar, Functional Strength, Safety, Therapeutic Exercise, Transfers Treatment Duration: May 14, 2019 Frequency: 5 times per week Estimated Hrs Per Day: .25 hour per day Patient and/or Family Agrees t: Yes Discharge Recommendations Therapy Discharge Recommendati: Other, See Comments (residential facility) Time/GCodes Time In: 849 Time Out: 857 Total Billed Treatment Time: 8 [facility] D[facility]ICK [facility]N PT May 05, 2019 10:36
--- NOTE | 2019-05-05 10:45 | History & Physical-Hospitalist ---
History of Present Illness HPI/Chief Complaint Manoj Guerrier is a 63-year-old male with past medical history of hypertension, diabetes, COPD, current smoker, hip replacement with chronic dislocation, wheelchair dependent, who presented from home with a fall from his wheelchair. He reports that he was going into the bathroom and his electric wheelchair tipped forward and he fell into a wall and slid down to the floor. He denies hitting his head. He denies any loss of consciousness. He denies any lightheadedness or dizziness. He was not having any issues prior to the fall. He does report that he was unable to get up. It took several be able to assist him out of his house to the ambulance. He currently does not have a primary care physician. He gets his care through the [facility]. He says that he is supposed to establish with a physician in [place]. He is a current half pack a day smoker. Source: patient Exam Limitations: no limitations Date Seen 05/05/19 Time Seen by a Provider: 09:40 Attending Physician Suzan Cuevas DO PCP No,Local Physician Referring Physician Date of Admission May 04, 2019 at 19:48 Home Medications & Allergies Home Medications Reviewed patient Home Medication Reconciliation performed by pharmacy medication reconciliations radioactivity technician and/or nursing. Patients Allergies have been reviewed. Allergies Allergies Coded Allergies Penicillins (Verified Allergy, Unknown, 03/18/18) amitriptyline (Verified Allergy, Unknown, 03/18/18) iodine (Verified Allergy, Unknown, 03/18/18) Past Udzwsnb-Kxddyx-Uacgsu Hx Past Med/Social Hx: Reviewed Nursing Past Med/Soc Hx Patient Social History Alcohol Use: Occasionally Uses (HISTORY OF ABUSE--DRANKD DAILY, AND AT LEAST A CASE OF BEER A WEEK, NOW DRINKS A FEW TIMES A WEEK) Recreational Drug Use: No Smoking Status: Current Everyday Smoker (1 1/2 PPD) Type Used: Cigarettes (1 1/2 PPD) 2nd Hand Smoke Exposure: Yes Recent Foreign Travel: No Contact w/other who traveled: No Recent Hopitalizations: Yes Recent Infectious Disease Expo: No Immunizations Up To Date Date of Pneumonia Vaccine: Nov 28, 2016 Seasonal Allergies Seasonal Allergies: No Past Medical History Surgeries: Orthopedic Respiratory: COPD Currently Using CPAP: No Currently Using BIPAP: No Cardiac: Chronic Edema/Swelling, Deep Vein Thrombosis, High Cholesterol, Hypertension Neurological: Neuropathy (SUSPECTED) Musculoskeletal: Chronic Back Pain, Fractures Endocrine: Diabetes, Insulin dep Hearing Impairment: Hard of Hearing History of Blood Disorders: Yes (DVT'S) Family History Neoplasm G8 BROTHER daughter No Pertinent Family Hx ON ADMIT HERE 02/2018--PT ADMITTED FOR COPD WITH RESPIRATORY FAILURE AND REQUIRED INTUBATION. PT AND FAMILY HAD REPORTED AT THAT ADMIT, THAT PT HAS HAD MULTIPLE INTUBATIONS IN THE PAST Review of Systems Constitutional: weakness EENTM: no symptoms reported Respiratory: short of breath Cardiovascular: no symptoms reported Gastrointestinal: no symptoms reported Genitourinary: no symptoms reported Musculoskeletal: no symptoms reported Skin: no symptoms reported Psychiatric/Neurological: No Symptoms Reported Physical Exam Physical Exam Vital Signs Vital Signs - First Documented 05/04/19 05/04/19 17:58 19:25 Temp 36.4 Pulse 79 Resp 24 B/P (MAP) 176/134 (148) Pulse Ox 99 O2 Delivery Room Air O2 Flow Rate 2.50 Capillary Refill : Less Than 3 SecondsLess Than 3 Seconds Height, Weight, BMI Height: 6'3.00" Weight: 435lbs. 3.0oz. [id number]; 44.70 BMI Method:Stated General Appearance: No Apparent Distress, WD/WN HEENT: PERRL/EOMI, Pharynx Normal Neck: Normal Inspection, Supple Respiratory: No Respiratory Distress, Wheezing Cardiovascular: Regular Rate, Rhythm, No Murmur Gastrointestinal: Normal Bowel Sounds, Non Tender, Soft Extremity: Normal Inspection, Non Tender, Pedal Edema Neurologic/Psychiatric: Alert, Oriented x3, No Motor/Sensory Deficits, Normal Mood/Affect Skin: Normal Color, Warm/Dry Results Results/Procedures Labs Laboratory Tests 05/04/19 18:05 05/05/19 05:37 Patient resulted labs reviewed. Imaging: Reviewed Imaging Report Assessment/Plan Admission Diagnosis Ground-level fall with hip dislocation Admission Status: Inpatient Order (span 2 midnights) Reason for Inpatient Admission: Follow-up with hip dislocation requiring further evaluation Assessment and Plan Ground-level fall Hip dislocation Debility Wheelchair dependent Fall from wheelchair at home CT revealed hip dislocation Orthopedic surgery consulted, dislocation appears chronic, no surgical intervention needed PT/OT consulted Inpatient rehabilitation evaluation ordered Social work consulted, appreciate assistance COPD exacerbation Acute hypoxic respiratory failure Prednisone ordered MAT protocol Type II diabetes mellitus with hyperglycemia Sliding scale insulin Resume home metformin Hypertension Begin lisinopril Morbid obesity BMI 44.9, clinically significant, no acute management needs DVT prophylaxis: Lovenox Diagnosis/Problems Diagnosis/Problems (1) Wheelchair dependent Status: Chronic (2) Falls Status: Acute Qualifiers: Encounter type: initial encounter Qualified Codes: W19.XXXA - Unspecified fall, initial encounter (3) HTN (hypertension) Status: Acute Qualifiers: Hypertension type: essential hypertension Qualified Codes: I10 - Essential (primary) hypertension (4) Uncontrolled type 2 diabetes mellitus Status: Acute Qualifiers: Glycemic state: with hyperglycemia Qualified Codes: E11.65 - Type 2 diabetes mellitus with hyperglycemia (5) Hyponatremia Status: Acute (6) Acute respiratory failure with hypoxia Status: Acute (7) COPD exacerbation Status: Acute (8) Morbid obesity Status: Acute Clinical Quality Measures DVT/VTE Risk/Contraindication: Risk Factor Score Per Nursin RFS Level Per Nursing on Admit: 4+=Very High TRACIE VELÁZQUEZ MD May 05, 2019 10:45
[2019-05-05] MEDS ORDERED: hydrALAZINE (APESOLINE) 20 MG/ML VIAL IV PRN (11:15)
[2019-05-05] MEDS ORDERED: lisINopril 40 MG (PRINIVIL) TABLET PO NR ×3 (11:15→11:51)
--- NOTE | 2019-05-05 11:29 | Consultation - Ortho ---
Consult - Ortho Subjective Date of Exam 05/05/19 Chief Complaint Bilateral hip pain and sacral pain HPI/Events since last exam Mr Guerrier is a 63-year-old white male who is complaining of bilateral hip pain. He fell from his motorized scooter yesterday at home and was brought the emergency room for further evaluation and treatment. X-rays were obtained which shows significant degenerative changes of the right hip and a chronic dislocation of a total hip arthroplasty on the left. No fractures or abnormalities of the sacrum were noted. He injured his left hip in 1974 on the service when he fell. He underwent a left total hip arthroplasty in 1991. He stated immediately after the surgery he had problems with dislocation/stability of the left hip. He eventually continued with the dislocated hip that is been out for several years. He has not been ambulating due to his hip pain specifically the left hip. He is to use a walker but no longer ambulates even with the walker. Has chronic pain in both hips left greater than right. His treatment for his left hip was at the [facility]. He has a history of diabetes. He is significantly overweight. He has diabetic neuropathy of the hands and feet. Medical, Surgical History Reviewed and no additions or changes Social History Reviewed and no additions or changes Family History Reviewed and no additions or changes Review of Systems Reviewed and no additions or changes Allergies: Coded Allergies: Penicillins (Verified Allergy, Unknown, 03/18/18) amitriptyline (Verified Allergy, Unknown, 03/18/18) iodine (Verified Allergy, Unknown, 03/18/18) Home Meds Reported Medications Sennosides/Docusate Sodium (Docusate Sodium-Senna Tablet) 1 Each Tablet, 1 TAB PO BID, TAB 03/18/18 Insulin Glargine,Hum.rec.anlog (Lantus) 100 Unit/1 Ml Vial, 10 UNIT SQ DAILY, VIAL 03/18/18 Vit E Acetate/Gly/Dimeth/Water (Moisturizing Lotion) 473 Ml Lotion, TP DAILY, ML 03/18/18 Potassium Chloride (Potassium Chloride) 10 Meq Tablet.er, 20 MEQ PO BID, TAB TAKES 2 (10MEQ) TABLETS 03/18/18 Omeprazole (Omeprazole) 20 Mg Capsule.dr, 20 MG PO BID, CAP 03/18/18 Metoprolol Tartrate (Metoprolol Tartrate) 100 Mg Tablet, 50 MG PO BID, TAB TAKES 1/2 (100MG) TABLET 03/18/18 Metformin HCl (Metformin HCl) 1,000 Mg Tablet, 1000 MG PO BID, TAB 03/18/18 Glipizide (Glipizide) 5 Mg Tablet, 15 MG PO BID, TAB TAKES 3 (5MG) TABLETS 03/18/18 Gabapentin (Gabapentin) 600 Mg Tablet, 600 MG PO TID, TAB 03/18/18 Furosemide (Furosemide) 40 Mg Tablet, 40 MG PO 0800,1200, TAB 03/18/18 Etodolac (Etodolac) 500 Mg Tablet, 500 MG PO TID PRN for PAIN-MODERATE, TAB 03/18/18 Atorvastatin Calcium (Atorvastatin Calcium) 80 Mg Tablet, 80 MG PO HS, TAB 03/18/18 Acetaminophen (Tylenol Extra Strength) 500 Mg Tablet, 1000 MG PO Q6H PRN for PAIN-MILD, TAB 03/18/18 Objective Exam Constitutional: [] HEENT: [] Neck: [No pain with range of motion or palpation] Cardiovascular: [] Respiratory: [] Gastrointestinal: [] Genitourinary: [] Skin: [] Back/Spine: [No pain with range of motion or palpation. He does have a little discomfort over his sacrum] Extremities: [] Upper extremities is full motion. No deformity. No crepitation. He has altered sensation in both hands. Equal pulses Lower extremities he has pain with motion of the right hip. He has shortening of the left lower extremity. Surgical incision is noted from his total hip arthroplasty. Pain with motion left hip. Good motion in both knees with minim al pain. Altered sensation in both feet and lower legs. Neurologic: [] Psychiatric: [] Hematologic/lymphatic/immunologic: [] Vital Signs Vital Signs Date Time Temp Pulse Resp B/P (MAP) Pulse Ox O2 Delivery O2 Flow Rate FiO2 05/05/19 08:37 95 Nasal Cannula 3.00 05/05/19 08:01 36.8 85 20 155/82 (106) 95 Nasal Cannula 3.00 05/05/19 08:00 95 Nasal Cannula 3.00 05/05/19 07:00 87 05/05/19 04:00 36.7 90 21 196/91 (126) 93 Nasal Cannula 2.00 05/05/19 01:00 85 05/05/19 00:28 36.6 83 21 97 Nasal Cannula 2.00 05/05/19 00:20 36.4 85 97 05/05/19 00:03 81 05/04/19 22:26 36.6 85 24 174/92 98 Nasal Cannula 2.00 05/04/19 21:30 36.4 80 24 176/134 (148) 99 Nasal Cannula 2.50 05/04/19 20:30 98 Nasal Cannula 2.00 05/04/19 19:25 100 Nasal Cannula 2.50 05/04/19 17:58 36.4 79 24 176/134 (148) 99 Room Air I & O 05/05/19 07:00 Intake Total 2200 ml Output Total 5075 ml Balance -2875 ml Lab Results Laboratory Tests 05/04/19 18:05: White Blood Count 11.0, Red Blood Count 4.36, Hemoglobin 13.7, Hematocrit 40, Mean Corpuscular Volume 92, Mean Corpuscular Hemoglobin 31, Mean Corpuscular Hemoglobin Concent 34, Red Cell Distribution Width 15.2H, Platelet Count 297, Mean Platelet Volume 9.1, Neutrophils (%) (Auto) 75, Lymphocytes (%) (Auto) 15, Monocytes (%) (Auto) 8, Eosinophils (%) (Auto) 1, Basophils (%) (Auto) 0, Neutrophils # (Auto) 8.3H, Lymphocytes # (Auto) 1.7, Monocytes # (Auto) 0.9, Eosinophils # (Auto) 0.1, Basophils # (Auto) 0.0, Sodium Level 129L, Potassium Level 4.1, Chloride Level 93L, Carbon Dioxide Level 26, Anion Gap 10, Blood Urea Nitrogen 7, Creatinine 0.71, Estimat Glomerular Filtration Rate > 60, BUN/Creatinine Ratio 10, Glucose Level 181H, Calcium Level 8.9, Corrected Calcium 9.2, Magnesium Level 1.6, Total Bilirubin 0.4, Aspartate Amino Transf (AST/SGOT) 12, Alanine Aminotransferase (ALT/SGPT) 12, Alkaline Phosphatase 119, Total Creatine Kinase 46, Creatine Kinase MB 2.0, Myoglobin 49.8, Troponin I < 0.028, B-Type Natriuretic Peptide 14.6, Total Protein 7.0, Albumin 3.6, Serum Alcohol < 10 05/04/19 18:20: Prothrombin Time 12.9, INR Comment 0.9, Activated Partial Thromboplast Time 25, Glucometer 189H 05/04/19 18:30: Urine Color YELLOW, Urine Clarity CLEAR, Urine pH 6.5, Urine Specific [place] 1.010L, Urine Protein TRACEH, Urine Glucose (UA) NEGATIVE, Urine Ketones NEGATIVE, Urine Nitrite NEGATIVE, Urine Bilirubin NEGATIVE, Urine Urobilinogen 0.2, Urine Leukocyte Esterase NEGATIVE, Urine RBC (Auto) NEGATIVE, Urine RBC NONE, Urine WBC NONE, Urine Squamous Epithelial Cells RARE, Urine Crystals NONE, Urine Bacteria TRACE, Urine Casts PRESENT, Urine Hyaline Casts RARE, Urine Mucus NEGATIVE, Urine Culture Indicated NO, Urine Opiates Screen NEGATIVE, Urine Oxycodone Screen NEGATIVE, Urine Methadone Screen NEGATIVE, Urine Propoxyphene Screen NEGATIVE, Urine Barbiturates Screen NEGATIVE, Ur Tricyclic Antidep ressants Screen POSITIVEH, Urine Phencyclidine Screen NEGATIVE, Urine Amphetamines Screen NEGATIVE, Urine Methamphetamines Screen NEGATIVE, Urine Benzodiazepines Screen NEGATIVE, Urine Cocaine Screen NEGATIVE, Urine Cannabinoids Screen NEGATIVE 05/04/19 18:54: Lactic Acid Level 1.37 05/04/19 21:02: 05/05/19 05:22: Glucometer 296H 05/05/19 05:37: White Blood Count 12.9H, Red Blood Count 4.59, Hemoglobin 13.9, Hematocrit 42, Mean Corpuscular Volume 91, Mean Corpuscular Hemoglobin 30, Mean Corpuscular Hemoglobin Concent 33, Red Cell Distribution Width 15.3H, Platelet Count 265, Mean Platelet Volume 9.6, Neutrophils (%) (Auto) 96H, Lymphocytes (%) (Auto) 3L, Monocytes (%) (Auto) 1, Eosinophils (%) (Auto) 0, Basophils (%) (Auto) 0, Neutrophils # (Auto) 12.3H, Lymphocytes # (Auto) 0.4L, Monocytes # (Auto) 0.1, Eosinophils # (Auto) 0.0, Basophils # (Auto) 0.0, Neutrophils % (Manual) 98, Lymphocytes % (Manual) 1, Monocytes % (Manual) 1, Eosinophils % (Manual) 0, Basophils % (Manual) 0, Band Neutrophils 0, Blood Morphology Comment NORMAL, Sodium Level 131L, Potassium Level 4.5, Chloride Level 97L, Carbon Dioxide Level 24, Anion Gap 10, Blood Urea Nitrogen 7, Creatinine 0.67, Estimat Glomerular Filtration Rate > 60, BUN/Creatinine Ratio 10, Glucose Level 289H, Calcium Level 8.8, Corrected Calcium 9.3, Total Bilirubin 0.5, Aspartate Amino Transf (AST/SGOT) 9, Alanine Aminotransferase (ALT/SGPT) 9, Alkaline Phosphatase 118, Total Protein 6.8, Albumin 3.4 05/05/19 10:59: Glucometer 300H Microbiology 05/04/19 Influenza Types A,B Antigen (DASHA) - Final, Complete Imaging No x-rays were obtained of the pelvis but CT scan does show the chronically dislocated left total hip arthroplasty. 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 Right hip shows degenerative changes with marked joint space narrowing Assessment and Plan Assessment Bilateral hip pain Problem List Severe osteoarthritis right hip Chronic dislocation left total hip arthroplasty Plan The above was discussed with the patient. The right hip is to the point where the only thing is probably going to help him is a total hip arthroplasty. Far as the left hip P would need a revision of this left hip due to the chronic changes from the chronic dislocation. He is a nonambulator and continue with limited activity with nonsurgical treatment. Since he is over 400 pounds most orthopedists would not recommend total hip arthroplasty until significant weight loss. He's really not interested in any surgical treatment. I doubt very much if he could lose much weight if any So at this point he will discontinue with bed to chair as tolerated. Final Diagonsis Severe degenerative arthritis right hip Chronic dislocation left total hip arthroplasty Level of the visit: Level 3 JURGEN METZ MD May 05, 2019 11:29
--- NOTE | 2019-05-05 12:19 | Pulmonary Consultation ---
History of Present Illness History of Present Illness Date Seen by Provider: May 05, 2019 Time Seen by Provider: 12:12 Date of Admission History of Present Illness 63yo with hx of HTN, COPD with current tobacco use, chronic debility wheelchiar dependent presented from home s/p fall from wheelchair. Did not hit head and no loss of consciousness. I am consulted for pulmonary management. Allergies and Home Medications Allergies Coded Allergies: Penicillins (Verified Allergy, Unknown, 03/18/18) amitriptyline (Verified Allergy, Unknown, 03/18/18) iodine (Verified Allergy, Unknown, 03/18/18) Home Medications Acetaminophen 500 Mg Tablet, 1,000 MG PO Q6H PRN for PAIN-MILD, (Reported) Atorvastatin Calcium 80 Mg Tablet, 80 MG PO HS, (Reported) Etodolac 500 Mg Tablet, 500 MG PO TID PRN for PAIN-MODERATE, (Reported) Furosemide 40 Mg Tablet, 40 MG PO 0800,1200, (Reported) Gabapentin 600 Mg Tablet, 600 MG PO TID, (Reported) Glipizide 5 Mg Tablet, 15 MG PO BID, (Reported) TAKES 3 (5MG) TABLETS Insulin Glargine,Hum.rec.anlog 100 Unit/1 Ml Vial, 10 UNIT SQ DAILY, (Reported) Metformin HCl 1,000 Mg Tablet, 1,000 MG PO BID, (Reported) Metoprolol Tartrate 100 Mg Tablet, 50 MG PO BID, (Reported) TAKES 1/2 (100MG) TABLET Omeprazole 20 Mg Capsule.dr, 20 MG PO BID, (Reported) Potassium Chloride 10 Meq Tablet.er, 20 MEQ PO BID, (Reported) TAKES 2 (10MEQ) TABLETS Sennosides/Docusate Sodium 1 Each Tablet, 1 TAB PO BID, (Reported) Vit E Acetate/Gly/Dimeth/Water 473 Ml Lotion, TP DAILY, (Reported) Past Heyfwwi-Qofqfs-Nsaagp Hx Past Med/Social Hx: Reviewed Nursing Past Med/Soc Hx Patient Social History Alcohol Use: Occasionally Uses (HISTORY OF ABUSE--DRANKD DAILY, AND AT LEAST A CASE OF BEER A WEEK, NOW DRINKS A FEW TIMES A WEEK) Recreational Drug Use: No Smoking Status: Current Everyday Smoker (1 1/2 PPD) Type Used: Cigarettes (1 1/2 PPD) 2nd Hand Smoke Exposure: Yes Recent Foreign Travel: No Contact w/Someone Who Travel: No Recent Infectious Disease Expo: No Recent Hopitalizations: Yes Immunizations Up To Date Date of Pneumonia Vaccine: Nov 28, 2016 Seasonal Allergies Seasonal Allergies: No Past Medical History Surgeries: Yes (LEFT HIP REPLACEMENT; LEFT KNEE/PATELLA; MULTIPLE SURGERIES LEFT LEG) Orthopedic Respiratory: Yes (STATES HE WAS ON VENT IN "FELL IN A GRAIN BIN";INTUBATED 02/2018) COPD Currently Using CPAP: No Currently Using BIPAP: No Cardiac: Yes Chronic Edema/Swelling, Deep Vein Thrombosis, High Cholesterol, Hypertension Neurological: Yes 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 SURGERIES;L KNEE/PATELLA SX;LEFT HIP REPLACEMENT) Chronic Back Pain, Fractures Endocrine: Yes Diabetes, Insulin dep HEENT: Yes Hearing Impairment: Hard of Hearing Cancer: No Psychosocial: No Integumentary: Yes (CELLULITIS OF LEGS) Blood Disorders: Yes (DVT'S) Family Medical History Neoplasm G8 BROTHER daughter No Pertinent Family Hx ON ADMIT HERE 02/2018--PT ADMITTED FOR COPD WITH RESPIRATORY FAILURE AND REQUIRED INTUBATION. PT AND FAMILY HAD REPORTED AT THAT ADMIT, THAT PT HAS HAD MULTIPLE INTUBATIONS IN THE PAST Review of Systems Time Seen by Provider: 12:20 Sepsis Event Evaluation Height, Weight, BMI Height: 6'3.00" Weight: 435lbs. 3.0oz. 197.518279az; 44.70 BMI Method:Stated Exam Exam Vital Signs Date Time Temp Pulse Resp B/P (MAP) Pulse Ox O2 Delivery O2 Flow Rate FiO2 05/05/19 11:49 89 22 159/78 (105) 96 Nasal Cannula 2.00 05/05/19 11:24 36.8 85 95 32 05/05/19 08:37 95 Nasal Cannula 3.00 05/05/19 08:01 36.8 85 20 155/82 (106) 95 Nasal Cannula 3.00 05/05/19 08:00 95 Nasal Cannula 3.00 05/05/19 07:00 87 05/05/19 04:00 36.7 90 21 196/91 (126) 93 Nasal Cannula 2.00 05/05/19 01:00 85 05/05/19 00:28 36.6 83 21 97 Nasal Cannula 2.00 05/05/19 00:20 36.4 85 97 05/05/19 00:03 81 05/04/19 22:26 36.6 85 24 174/92 98 Nasal Cannula 2.00 05/04/19 21:30 36.4 80 24 176/134 (148) 99 Nasal Cannula 2.50 05/04/19 20:30 98 Nasal Cannula 2.00 05/04/19 19:25 100 Nasal Cannula 2.50 05/04/19 17:58 36.4 79 24 176/134 (148) 99 Room Air I & O 05/05/19 07:00 Intake Total 2200 ml Output Total 5075 ml Balance -2875 ml Height & Weight Height: 6'3.00" Weight: 435lbs. 3.0oz. 197.662822pw; 44.70 BMI Method:Stated General Appearance: No Apparent Distress, WD/WN HEENT: PERRL/EOMI, Pharynx Normal Neck: Normal Inspection, Supple Respiratory: No Respiratory Distress, Wheezing Cardiovascular: Regular Rate, Rhythm, No Murmur Capillary Refill: Less Than 3 Seconds Gastrointestinal: non tender, soft, other Extremity: Normal Inspection, Non Tender, Pedal Edema Neurologic/Psychiatric: Alert, Oriented x3, No Motor/Sensory Deficits, Normal Mood/Affect Skin: Normal Color, Warm/Dry Results Lab Laboratory Tests 05/04/19 18:05 05/05/19 05:37 Assessment/Plan Assessment/Plan Debility wheelchair dependent s/p resulting in hip dislocation -Ortho following -Inpt rehab consulted [facility] with hypoxia -Duonebs -Prednisone -Influenza is negative Hyponatremia -monitor DM II HTN Morbid obesity BMI 44.9, clinically significant, no acute management needs SWATI MCKENZIE DO May 05, 2019 12:19
--- NOTE | 2019-05-05 12:41 | Occupational Therapy Eval ---
OT Evaluation-General/PLF Medical Diagnosis Admission Date May 04, 2019 at 19:48 Medical Diagnosis: chronic hip dislocation Onset Date: May 04, 2019 Therapy Diagnosis Therapy Diagnosis: impaired ADLs/functional mobility Height/Weight Height (Feet): 6 Height (Inches): 3.00 Weight (Pounds): 435 Weight (Ounces): 3.0 Precautions Precautions/Isolations: Fall Prevention, Standard Precautions Safety Interventions: Reorient-PRN Referral Physician: Mason Referral Reason: Evaluation/Treatment Medical History Pertinent Medical History: Alcoholism, DM, HTN, Neuropathy, Smoking Additional Medical History HTN, DM, COPD, high cholesterol, chronic dislocation, w/c dependent, DVT, alcoholism, neuropathy, smoking Current History Per H&P: "Manoj Guerrier is a 63-year-old male with past medical history of hypertension, diabetes, COPD, current smoker, hip replacement with chronic dislocation, wheelchair dependent, who presented from home with a fall from his wheelchair. He reports that he was going into the bathroom and his electric wheelchair tipped forward and he fell into a wall and slid down to the floor. He denies hitting his head. He denies any loss of consciousness. He denies any lightheadedness or dizziness. He was not having any issues prior to the fall. He does report that he was unable to get up. It took several be able to assist him out of his house to the ambulance. He currently does not have a primary care physician. He gets his care through the [facility]. He says that he is supposed to establish with a physician in [place]. He is a current half pack a day smoker." Reviewed History: Yes Social History Home: Apartment Current Living Status: Alone Entry Into Home: Ramp ADL-Prior Level of Function SCALE: Activities may be completed with or without assistive devices. 5-Ktfkzdjynl-baqmlsz completes the activity by him/herself with no assistance from a helper. 5-Set-up or Clean-up Assistance-helper sets up or cleans up; patient completes activity. [place] assists only prior to or following the activity. 4-Supervision or Touching Assistance-helper provides verbal cues and/or touching/steadying and/or contact guard assistance as patient completes activity. Assistance may be provided throughout the activity or intermittently. 3-Partial/Moderate Assistance-helper does LESS THAN HALF the effort. [place] lifts, holds or supports trunk or limbs, but provides less than half the effort. 2-Substantial/Maximal Assistance-helper does MORE THAN HALF the effort. [place] lifts or holds trunk or limbs and provides more than half the effort. 4-Zfeqemxvi-zwjbid does ALL the effort. Patient does none of the effort to compl ete the activity. Or, the assistance of 2 or more helpers is required for the patient to complete the activity. If activity was not attempted, code reason: 7-Patient Refused. 9-Not Applicable-not attempted and the patient did not perform the activity before the current illness, exacerbation or injury. 10-Not Attempted due to Environmental Limitations-(lack of equipment, weather restraints, etc.). 88-Not Attempted due to Medical Conditions or Safety Concerns. ADL PLOF Comments Pt reports being able to complete cooking, dressing and bathing at home without issues. He takes sponge baths, uses a power w/c for mobility. He reports his w/c is able to go all around his apartment to get where he needs to go. For toileting, he transfers to a BSC, and he is able to complete cleansing by himself. He has a woman come in 2 times a week to help with cleaning and laundry. Self Care: Independent Functional Cognition: Independent DME/Equipment Comments power w/c, BSC x2, OT Current Status Subjective Pt laying in bed at start of session, agreeable to OT evaluation. He did not report any pain during tx. Mental Status/Objective Patient Orientation: Person, Place, Time, Situation Attachments: IV, Oxygen (2 L) Current Glasses/Contacts: No Hearing Aids: No Dentures/Partials: No Hand Dominance: Right Upper Extremity ROM WFL BUE shoulder flex to approx 160 degrees Upper Extremity Coordination WFL Upper Extremity Sensation Pt reports tingling/numbness in Bilat hands Upper Extremity Strength grossly 4/5 MMT Other Treatments Pt laying in bed, provides information about PLOF and home set up. OT educated pt on purpose and benefits of therapy. He participates in ROM screen and MMT. Pt declines ADLs at this time stating he is waiting on his lunch, agrees to plan of care. Post OT session, pt laying in bed with call light in reach and all needs met. OT assisted and educated pt on how to use hospital phone. Education OT Patient Education: Correct positioning, Energy conservation, Modified ADL techniques, Progress toward Goal/Update tx plan, Purpose of tx/functional activities Teaching Recipient: Patient Teaching Methods: Discussion Response to Teaching: Verbalize Understanding OT Fdc Goals Hazardous Waste Remover Goals Time Frame: May 13, 2019 Eating (QC): 6 Oral Hygiene (QC): 6 Toileting Hygiene (QC): 6 Shower/Bathe Self (QC): 6 Upper Body Dressing (QC): 6 Lower Body Dressing (QC): 6 On/Off Footwear (QC): 6 1=Demonstrate adherence to instructed precautions during ADL tasks. 2=Patient will verbalize/demonstrate understanding of assistive devices/modifications for ADL. 3=Patient will improve strength/tolerance for activity to enable patient to perform ADL's. OT Education/Plan Problem List/Assessment Assessment: Decreased Activ Tolerance, Decreased UE Strength, Impaired Funct Balance, Impaired I ADL's, Impaired Self-Care Skills Discharge Recommendations Plan/Recommendations: Continue POC Treatment Plan/Plan of Care Treatment,Training & Education: Yes Patient would benefit from OT for education, treatment and training to promote independence in ADL's, mobility, safety and/or upper extremity function for ADL's. Plan of Care: ADL Retraining, Functional Mobility, UE Funct Exercise/Act Treatment Duration: May 13, 2019 Frequency: 5 times per week Estimated Hrs Per Day: .25 hour per day Agreement: Yes Rehab Potential: Fair Time/GCodes Start Time: 11:32 Stop Time: 11:45 Total Time Billed (hr/min): 13 Billed Treatment Time 1, LENNY AVALOS OT May 05, 2019 12:41
[2019-05-05] MEDS ORDERED: POTA-51 PO (13:36)
[2019-05-05] MEDS ORDERED: POLY17PO6 PO (13:37)
[2019-05-05] MEDS ORDERED: BISA-65 PO (13:37)
--- NOTE | 2019-05-05 13:40 | NUR ---
SPOKE WITH THE PT, CALLED [facility] AND GOT A FAX OF CURRENT MEDS TO COMPLETE THE MED REC. PT HAD A HARD TIME REMEMBERING THE NAMES OF HIS MEDICATIONS. WHEN I HAD THE LIST FROM THE [facility] AND WOULD NAME THEM OFF (OR HE COULD LOOK AT THE NAMES) HE WAS ABLE TO VERIFY HOW HE TOOK THEM. THE FOLLOWING ARE FILL DATES FROM THE [facility]: 01-31-2019 METOPROLOL TART 100MG #90/90DS 03-31-2019 ATORVASTATIN 80MG #90/90DS 04-01-2019 FUROSEMIDE #90/90DS 04-01-2019 GABAPENTIN 600MG #180/30DS 04-01-2019 METFORMIN 1000MG #180/90DS 04-01-2019 POTASSIUM CL 20MEQ #180/90DS OTC MEDS: TYLENOL DULCOLAX MIRALAX THE PT HAD PREVIOUSLY FILLED THE FOLLOWING MEDS (LAST TIME HE WAS HERE IN 2018) BUT DOESNT TAKE THEM CURRENTLY: LANTUS ([facility] HAS NO RECORD OF THIS BEING FILLED SINCE ) GLIPIZIDE (LAST FILLED 08-19-2018) ETODOLAC OMEPRAZOLE
--- NOTE | 2019-05-05 13:53 | NUR ---
IRF Evaluation Order received to evaluate patient for the ARU. Chart review complete and findings discussed with Dr. Cuevas - patient denied admission as he would not be able to tolerate the intensity of therapy provided. Thank you for this referral.
--- NOTE | 2019-05-05 14:51 | NUR ---
CM/SS visited with the patient for discharge planning. The patient was in bed watching TV at the time of visit. The patient was willing and able to discuss plans upon discharge. The patient states that he feels that he does well at home and really doesn't have any problems. CM/SS asked him about the "bucket" in the middle that he is using for urination and defecation. He points to the portable camode and stated he had one of those in the home. The patient states he has a icebox worker who is supposed to be cleaning, cooking, and laundry. He also stated he received a letter from [facility] office on Aging stating he would be eligible to receive services in the home. CM/SS discussed going into a snf for therapies if needed to help him get stronger. He is unsure if he is willing to go to a nursing facility or not. Will revisit tomorrow. The patient states that he moved here about 15 months ago from [place] and he is not very happy living in [place]. He believes he had more resources in [place]. The only reason he moved to [place] was to be closer to his family- 2 sons and a daughter. The daughter lives approximately two blocks away and his son about 2 miles. Equipment: The patient has an electric wheelchair, portable camode, and a hospital bed. [facility] The patient is established through [facility] [place] and has a follow up appointment set up for May 25.
[2019-05-05] MEDS: metFORMIN 500 MG (GLUCOPHAGE) TAB PO SCH (17:33)
[2019-05-05] MEDS: ONDANSETRON 4 MG/2 ML (SDV) Z0FRAN IV PRN (23:57)
[2019-05-06] VITALS (7 sets, daily range): BP systolic 144–181; BP diastolic 54–96
--- NOTE | 2019-05-06 00:54 | NUR ---
PT CONTINUES TO COUGH AND VOMIT. ADMIN ZOFRAN EARLIER. CONTINUES TO VOMIT. MESSAGE SENT TO DR. MASON. SHE MESSAGED BACK TO CONSULT SURGERY AND TO INSERT NG TUBE.
[2019-05-06] MEDS: PROMETHAZINE INJ 25 MG/ML (PHENERGAN) AMP IVP PRN ×2 (01:39→20:47)
[2019-05-06] MEDS: CATHETER FLUSH 10 ML SYR IV SCH ×3 (01:39→20:47)
[2019-05-06] MEDS: ONDANSETRON 4 MG/2 ML (SDV) Z0FRAN IV PRN (03:53)
[2019-05-06] MEDS: NS IV 1000 ML 1,000 ML IV SCH (04:17)
[2019-05-06] MEDS: predniSONE 20 MG TAB PO SCH (05:40)
[2019-05-06] MEDS: metFORMIN 500 MG (GLUCOPHAGE) TAB PO SCH ×2 (05:40→16:20)
[2019-05-06] MEDS: inSUlin ASPART (NovoLOG) 1 UNIT/0.01 ML (CHARGE PER UNIT) SC SCH ×4 (05:40→20:55)
[2019-05-06] MEDS: RT-ALBUTEROL/IPRATROPIUM 3 ML (DUONEB) VIAL INH SCH ×3 (07:03→14:32)
--- NOTE | 2019-05-06 07:29 | Pulmonary Progress Note ---
Subjective Time Seen by a Provider: 07:23 Sepsis Event Evaluation Height, Weight, BMI Height: 6'3.00" Weight: 435lbs. 3.0oz. 197.231766hw; 44.70 BMI Method:Stated Focused Exam Lactate Level 05/04/19 18:54: Lactic Acid Level 1.37 Exam Exam Vital Signs Date Time Temp Pulse Resp B/P (MAP) Pulse Ox O2 Delivery O2 Flow Rate FiO2 05/06/19 07:03 94 Nasal Cannula 2.00 05/06/19 04:07 36.9 97 27 170/82 (111) 97 Nasal Cannula 2.00 05/06/19 02:08 181/82 (115) 05/06/19 01:21 100 05/06/19 00:16 37.1 96 23 144/67 (92) 100 Nasal Cannula 2.00 05/05/19 20:00 95 Nasal Cannula 3.00 05/05/19 20:00 36.5 124 20 131/55 (80) 94 Nasal Cannula 2.00 05/05/19 19:00 101 05/05/19 18:41 87 Room Air 05/05/19 16:31 37.0 98 20 167/81 (109) 94 Nasal Cannula 2.00 05/05/19 14:41 93 Nasal Cannula 2.00 05/05/19 12:42 85 05/05/19 11:49 89 22 159/78 (105) 96 Nasal Cannula 2.00 05/05/19 11:24 36.8 85 95 32 05/05/19 08:37 95 Nasal Cannula 3.00 05/05/19 08:01 36.8 85 20 155/82 (106) 95 Nasal Cannula 3.00 05/05/19 08:00 95 Nasal Cannula 3.00 I & O 05/06/19 07:00 Intake Total 3480 ml Output Total 3500 ml Balance -20 ml Height & Weight Height: 6'3.00" Weight: 435lbs. 3.0oz. 197.648250za; 44.70 BMI Method:Stated General Appearance: No Apparent Distress, WD/WN HEENT: PERRL/EOMI, Pharynx Normal Neck: Normal Inspection, Supple Respiratory: No Respiratory Distress, Wheezing Cardiovascular: Regular Rate, Rhythm, No Murmur Capillary Refill: Less Than 3 Seconds Gastrointestinal: non tender, soft, other Extremity: Normal Inspection, Non Tender, Pedal Edema Neurologic/Psychiatric: Alert, Oriented x3, No Motor/Sensory Deficits, Normal Mood/Affect Skin: Normal Color, Warm/Dry Results Lab Laboratory Tests 05/04/19 18:05 05/05/19 05:37 Assessment/Plan Assessment/Plan Debility wheelchair dependent s/p resulting in hip dislocation -Ortho following -Inpt rehab consulted [facility] with hypoxia -Duonebs -Prednisone -Influenza is negative Hyponatremia -monitor DM II HTN Morbid obesity BMI 44.9, clinically significant, no acute management needs SWATI MCKENZIE DO May 06, 2019 07:29
--- NOTE | 2019-05-06 07:36 | NUR ---
NG tube inserted got 1000cc out , then later patient pulled it out, Dr. Hernandez notified
[2019-05-06] MEDS ORDERED: RT-ALBUTEROL/IPRATROPIUM 3 ML (DUONEB) VIAL INH PRN (08:00)
[2019-05-06 08:16] LABS: BASOPHILS % (AUTO) 0 % (0-10); EOSINOPHILS % (AUTO) 0 % (0-10); HEMATOCRIT 42 % (40-54); HEMOGLOBIN 13.9 G/DL (13.3-17.7); LYMPHOCYTES # (AUTO) 0.8 X 10^3 (1.0-4.0); LYMPHOCYTES % (AUTO) 5 % (12-44); MEAN CORPUSCULAR HEMOGLOBIN 30 PG (25-34); MEAN CORPUSCULAR HGB CONC 33 G/DL (32-36); MEAN CORPUSCULAR VOLUME 92 FL (80-99); MEAN PLATELET VOLUME 9.3 FL (7.4-10.4); MONOCYTES # (AUTO) 1.1 X 10^3 (0.0-1.0); MONOCYTES % (AUTO) 7 % (0-12); NEUTROPHILS # (AUTO) 13.3 X 10^3 (1.8-7.8); NEUTROPHILS % (AUTO) 88 % (42-75); PLATELET COUNT 297 10^3/uL (130-400); RED CELL DISTRIBUTION WIDTH 15.7 % (10.0-14.5); WHITE BLOOD COUNT 15.2 10^3/uL (4.3-11.0)
[2019-05-06] MEDS: lisINopril 40 MG (PRINIVIL) TABLET PO SCH (08:24)
[2019-05-06] MEDS: ENOXAPARIN 60 MG/0.6 ML (LOVENOX) SYR SC SCH (08:25)
[2019-05-06 08:34] LABS: BUN/CREATININE RATIO 17; CALCIUM 8.6 MG/DL (8.5-10.1); CARBON DIOXIDE 27 MMOL/L (21-32); CHLORIDE 94 MMOL/L (98-107); CREATININE SERUM 0.75 MG/DL (0.60-1.30); GFR ESTIMATED > 60; GLUCOSE 269 MG/DL (70-105); MAGNESIUM 1.8 MG/DL (1.6-2.4); SODIUM 132 MMOL/L (135-145)
--- NOTE | 2019-05-06 11:23 | Physical Therapy Daily Note ---
PT Daily Note-Current Subjective Patient agreeable to therapy and states he would like to sit up. Appearance Patient in bed with call light and bedside table within reach. Mental Status Patient Orientation: Person, Place, Time, Situation Attachments: Oxygen, IV Transfers SCALE: Activities may be completed with or without assistive devices. 7-Ivfywfvacc-legbgag completes the activity by him/herself with no assistance from a helper. 5-Set-up or Clean-up Assistance-helper sets up or cleans up; patient completes activity. [place] assists only prior to or following the activity. 4-Supervision or Touching Assistance-helper provides verbal cues and/or touching/steadying and/or contact guard assistance as patient completes activity. Assistance may be provided throughout the activity or intermittently. 3-Partial/Moderate Assistance-helper does LESS THAN HALF the effort. [place] lifts, holds or supports trunk or limbs, but provides less than half the effort. 2-Substantial/Maximal Assistance-helper does MORE THAN HALF the effort. [place] lifts or holds trunk or limbs and provides more than half the effort. 6-Prserwbbc-nsiewv does ALL the effort. Patient does none of the effort to complete the activity. Or, the assistance of 2 or more helpers is required for the patient to complete the activity. If activity was not attempted, code reason: 7-Patient Refused. 9-Not Applicable-not attempted and the patient did not perform the activity before the current illness, exacerbation or injury. 10-Not Attempted due to Environmental Limitations-(lack of equipment, weather restraints, etc.). 88-Not Attempted due to Medical Conditions or Safety Concerns. Roll Left & Right (QC): 6 Sit to Lying (QC): 3 Lying to Sitting/Side of Bed(Q: 6 Patient IND getting out of bed but when going back to lying in bed patient needed assist getting his left foot into bed. Patient sat EOB for approximately 4 minutes. Gait Training Does the Patient Walk?: No and Walking Goal NOT indicated Wheelchair Training Does the Pt Use a Wheelchair?: No Exercises Seated Therapy Exercises: Long arc quads (10RLE) Treatments Sitting EOB 4 minutes, bed mobility Assessment Patient tolerated sitting EOB and was able to scoot towards the HOB IND using bed rails. Patient IND with bed mobility except needed assist getting left foot into bed while laying down. PT Prison Goals Prison Goals PT Pipefitter Welder Goals Time Frame: May 14, 2019 Roll Left & Right (QC): 5 Sit to Lying (QC): 5 Lying-Sitting on Side/Bed(QC): 5 Sit to Stand (QC): 9 Chair/One-rg-Sqnzy Xfer(QC): 5 Toilet Transfer (QC): 5 (drop arm commode) Does the Patient Walk: No and Walking Goal NOT indicated PT Plan Problem List Problem List: Activity Tolerance, Functional Strength, Safety, Balance, Transfer, Bed Mobility, ROM Treatment/Plan Treatment Plan: Continue Plan of Care Treatment Plan: Bed Mobility, Education, Functional Activity Edgar, Functional Strength, Safety, Therapeutic Exercise, Transfers Treatment Duration: May 14, 2019 Frequency: 5 times per week Estimated Hrs Per Day: .25 hour per day Patient and/or Family Agrees t: Yes Time/GCodes Time In: 1038 Time Out: 1050 Total Billed Treatment Time: 12 Total Billed Treatment 1 visit FA 12 DERICK CONN PT May 06, 2019 11:23
--- NOTE | 2019-05-06 11:51 | Occupational Ther Daily Note ---
OT Current Status-Daily Note Subjective Pt seen in bed, denies pain. Pt agreeable to OT tx. Mental Status/Objective Patient Orientation: Normal For Age Attachments: Quijano Catheter, Oxygen ADL-Treatment Therapy Code Descriptions/Definitions Functional Garden Measure: 0=Not Assessed/NA 4=Minimal Assistance 1=Total Assistance 5=Supervision or Setup 2=Maximal Assistance 6=Modified Garden 3=Moderate Assistance 7=Complete IndependenceSCALE: Activities may be completed with or without assistive devices. 2-Fonleghwla-gaqpucq completes the activity by him/herself with no assistance from a helper. 5-Set-up or Clean-up Assistance-helper sets up or cleans up; patient completes activity. Dennis assists only prior to or following the activity. 4-Supervision or Touching Assistance-helper provides verbal cues and/or touching/steadying and/or contact guard assistance as patient completes activity. Assistance may be provided throughout the activity or intermittently. 3-Partial/Moderate Assistance-helper does LESS THAN HALF the effort. Dennis lifts, holds or supports trunk or limbs, but provides less than half the effort. 2-Substantial/Maximal Assistance-helper does MORE THAN HALF the effort. Dennis lifts or holds trunk or limbs and provides more than half the effort. 5-Apkhtwiab-iclulr does ALL the effort. Patient does none of the effort to complete the activity. Or, the assistance of 2 or more helpers is required for the patient to complete the activity. If activity was not attempted, code reason: 7-Patient Refused. 9-Not Applicable-not attempted and the patient did not perform the activity before the current illness, exacerbation or injury. 10-Not Attempted due to Environmental Limitations-(lack of equipment, weather restraints, etc.). 88-Not Attempted due to Medical Conditions or Safety Concerns. Eating (QC): 6 (Pt's board states NPOx2. Pt's nurse notified of thirst, states clear liquids/ Jello Okay. Pt given such, able to eat with IND.) Oral Hygiene (QC): 7 Other Treatment Pt seen in bed, pt reclined. Pt positioned with HOB elevated, pt not able to tolerate sitting position within bed, reclined back down to ~75* elevation. Pt completes UE exercises with yellow theraband: 10 reps bilaterally: shoulder scaption, shoulder flexion, back flies, and biceps. Pt requires moderate cues for placement throughout. Pt given items nursing cleared verbally: Jello/ ice water. Pt able to eat with IND. Pt left in room with nursing present, all needs met, call light in reach. Education OT Patient Education: Correct positioning, Exercise program, Home exercise program Teaching Recipient: Patient Teaching Methods: Demonstration, Discussion Response to Teaching: Verbalize Understanding, Return Demonstration, Reinforcement Needed OT Photocopier Technician Goals Photocopier Technician Goals Time Frame: May 13, 2019 Eating (QC): 6 Oral Hygiene (QC): 6 Toileting Hygiene (QC): 6 Shower/Bathe Self (QC): 6 Upper Body Dressing (QC): 6 Lower Body Dressing (QC): 6 On/Off Footwear (QC): 6 1=Demonstrate adherence to instructed precautions during ADL tasks. 2=Patient will verbalize/demonstrate understanding of assistive devices/mod ifications for ADL. 3=Patient will improve strength/tolerance for activity to enable patient to perform ADL's. OT Education/Plan Problem List/Assessment Assessment: Decreased Activ Tolerance, Decreased UE Strength, Dependent Transfers, Impaired I ADL's, Impaired Self-Care Skills Discharge Recommendations Plan/Recommendations: Continue POC Treatment Plan/Plan of Care Treatment,Training & Education: Yes Patient would benefit from OT for education, treatment and training to promote independence in ADL's, mobility, safety and/or upper extremity function for ADL's. Plan of Care: ADL Retraining, Functional Mobility, UE Funct Exercise/Act Treatment Duration: May 13, 2019 Frequency: 5 times per week Estimated Hrs Per Day: .25 hour per day Agreement: Yes Rehab Potential: Fair Time/GCodes Start Time: 11:31 Stop Time: 11:44 Total Time Billed (hr/min): 13 Billed Treatment Time 1, EX (13) GIACOMO TIWARI OTR May 06, 2019 11:51
--- NOTE | 2019-05-06 11:55 | Progress Note - Hospitalist ---
Subjective HPI/CC On Admission Date Seen by Provider: May 06, 2019 Time Seen by Provider: 09:45 Manoj Guerrier is a 63-year-old male with past medical history of hypertension, diabetes, COPD, current smoker, hip replacement with chronic dislocation, wheelchair dependent, who presented from home with a fall from his wheelchair. He reports that he was going into the bathroom and his electric wheelchair tipped forward and he fell into a wall and slid down to the floor. He denies hitting his head. He denies any loss of consciousness. He denies any lightheadedness or dizziness. He was not having any issues prior to the fall. He does report that he was unable to get up. It took several be able to assist him out of his house to the ambulance. He currently does not have a primary care physician. He gets his care through the [place]. He says that he is supposed to establish with a physician in [place]. He is a current half pack a day smoker. Subjective/Events-last exam He reports having bad cough overnight. He reports having some posttussive emesis. He says that he threw up about 5 times. He reports feeling better this morning. He said that he is passing gas. He had a bowel movement yesterday. He said that he does not have abdominal pain but he is a bit sore from throwing up so many times. He denies any fevers or chills. He denies any chest pain or shortness of breath. He still feels weak. Focused Exam Lactate Level 05/04/19 18:54: Lactic Acid Level 1.37 Objective Exam Vital Signs Vital Signs Date Time Temp Pulse Resp B/P (MAP) Pulse Ox O2 Delivery O2 Flow Rate FiO2 05/06/19 10:29 92 Nasal Cannula 2.00 05/06/19 08:00 36.6 106 20 148/74 (98) 05/05/19 11:24 32 Capillary Refill : Less Than 3 SecondsLess Than 3 Seconds General Appearance: No Apparent Distress, Obese HEENT: PERRL/EOMI, Pharynx Normal Neck: Normal Inspection, Supple Respiratory: No Respiratory Distress, Rhonci, Wheezing Cardiovascular: Regular Rate, Rhythm, No Murmur Gastrointestinal: Normal Bowel Sounds, Non Tender, Soft Extremity: Normal Inspection, Non Tender, Pedal Edema Neurologic/Psychiatric: Alert, Oriented x3, No Motor/Sensory Deficits, Normal Mood/Affect Skin: Normal Color, Warm/Dry Results/Procedures Lab Laboratory Tests 05/06/19 07:50 Patient resulted labs reviewed. Imaging: Reviewed Imaging Report Assessment/Plan Assessment and Plan Assess & Plan/Chief Complaint Nausea and vomiting Consistent with posttussive emesis No signs of bowel obstruction Gen. surgery consulted, appreciate assistance Clear liquid diet anti-emetics ordered add cough medicine Ground-level fall Hip dislocation Debility Wheelchair dependent Fall from wheelchair at home CT revealed hip dislocation Orthopedic surgery consulted, dislocation appears chronic, no surgical intervention needed PT/OT consulted will likely require group home for rehabilitation on discharge Social work consulted, appreciate assistance COPD exacerbation Acute hypoxic respiratory failure continue Prednisone MAT protocol Type II diabetes mellitus with hyperglycemia Sliding scale insulin continue home metformin continue Levemir Hypertension continue lisinopril Morbid obesity BMI 44.6, clinically significant, no acute management needs DVT prophylaxis: Lovenox Diagnosis/Problems Diagnosis/Problems (1) Wheelchair dependent Status: Chronic (2) Falls Status: Acute Qualifiers: Encounter type: initial encounter Qualified Codes: W19.XXXA - Unspecified fall, initial encounter (3) HTN (hypertension) Status: Acute Qualifiers: Hypertension type: essential hypertension Qualified Codes: I10 - Essential (primary) hypertension (4) Uncontrolled type 2 diabetes mellitus Status: Acute Qualifiers: Glycemic state: with hyperglycemia Qualified Codes: E11.65 - Type 2 diabetes mellitus with hyperglycemia (5) Hyponatremia Status: Acute (6) Acute respiratory failure with hypoxia Status: Acute (7) COPD exacerbation Status: Acute (8) Morbid obesity Status: Acute Clinical Quality Measures DVT/VTE Risk/Contraindication: Risk Factor Score Per Nursin RFS Level Per Nursing on Admit: 4+=Very High TRACIE VELÁZUQEZ MD May 06, 2019 11:55
[2019-05-06] MEDS ORDERED: guaiFENesin/DM (ROBITUSSIN DM) 10 ML UDC PO PRN (12:00)
[2019-05-06] MEDS ORDERED: meTOprolol TARTRATE 50 MG (LOPRESSOR) TAB PO NR (12:00)
--- NOTE | 2019-05-06 12:58 | NUR ---
CM/SS followed up for discharge planning. The patient stated that he is feeling okay today but didn't sleep good overnight due to vomiting. The patient did not get in touch with his family last night and stated he plans to talk to them tomorrow about discharge plans. CM/SS discussed with him that he may need to go to a residential to get extra support for a time period. CM/SS discussed sending referrals and the patient declined at this time. The patient stated he wanted to talk with his family first and then will let SS know. CM/SS is going to make an APS report due to poor living conditions in the home. Addendum: 05/06/19 at 1339 by DONITA AVILEZ [facility] The APS report was made by this SS the ID intake number is [id number].
[2019-05-06] MEDS ORDERED: meTOprolol TARTRATE 50 MG (LOPRESSOR) TAB ONE (12:59)
[2019-05-06] MEDS ORDERED: FUROSEMIDE 40 MG (LASIX) TAB ONE (12:59)
[2019-05-06] MEDS ORDERED: GABAPENTIN 600 MG (NEURONTIN) TAB ONE (12:59)
--- NOTE | 2019-05-06 13:00 | NUR ---
1200 Furosemide and Lopressor pulled from stocked meds due to technical issues. 1300 Gabapentin pulled from stocked meds and also given due to technical issues.
[2019-05-06] MEDS: GABAPENTIN 600 MG (NEURONTIN) TAB PO SCH ×2 (13:05→20:46)
[2019-05-06] MEDS: FUROSEMIDE 40 MG (LASIX) TAB PO SCH (13:06)
--- NOTE | 2019-05-06 17:38 | Consultation - Surgery ---
History of Present Illness History of Present Illness Patient Consulted On(fifi/time) 05/06/19 17:32 Time Seen by Provider: 12:10 History of Present Illness Surgery asked to consult regarding nausea/vomiting and abdominal pain. HPI per IM: Manoj Guerrier is a 63-year-old male with past medical history of hypertension, diabetes, COPD, current smoker, hip replacement with chronic dislocation, wheelchair dependent, who presented from home with a fall from his wheelchair. He reports that he was going into the bathroom and his electric wheelchair tipped forward and he fell into a wall and slid down to the floor. He denies hitting his head. He denies any loss of consciousness. He denies any lightheadedness or dizziness. He was not having any issues prior to the fall. He does report that he was unable to get up. It took several be able to assist him out of his house to the ambulance. He currently does not have a primary care physician. He gets his care through the [place]. He says that he is supposed to establish with a physician in [place]. He is a current half pack a day smoker. When I spoke to pt this afternoon he states he feels much better; denies abdominal pain, nausea or vomiting. He states he doesn't know why he threw up, but feels fine now and was eating clear liquid diet without difficulty. Pt stated he also had flatus and very small BM. Allergies and Home Medications Allergies Coded Allergies: Penicillins (Verified Allergy, Unknown, 03/18/18) amitriptyline (Verified Allergy, Unknown, 03/18/18) iodine (Verified Allergy, Unknown, 03/18/18) Home Medications Acetaminophen 500 Mg Tablet, 1,000 MG PO Q6H PRN for PAIN-MILD, (Reported) Atorvastatin Calcium 80 Mg Tablet, 80 MG PO HS, (Reported) Bisacodyl 5 Mg Tablet.dr, 15 MG PO DAILY PRN for CONSTIPATION-1ST LINE, (Reported) TAKES 3 (5MG) TABS DAILY Furosemide 40 Mg Tablet, 40 MG PO 0800,1200, (Reported) Gabapentin 600 Mg Tablet, 600 MG PO TID, (Reported) Metformin HCl 1,000 Mg Tablet, 1,000 MG PO BID, (Reported) Metoprolol Tartrate 100 Mg Tablet, 50 MG PO BID, (Reported) TAKES 1/2 (100MG) TABLET Polyethylene Glycol 3350 17 Gm Powd.pack, 17 GM PO DAILY PRN for CONSTIPATION- 2ND LINE, (Reported) Potassium Chloride 20 Meq Tablet.er, 20 MEQ PO BID, (Reported) Patient Home Medication List Home Medication List Reviewed: Yes Past Imgiozf-Bffivb-Wwoseq Hx Patient Social History Alcohol Use: Occasionally Uses (HISTORY OF ABUSE--DRANKD DAILY, AND AT LEAST A CASE OF BEER A WEEK, NOW DRINKS A FEW TIMES A WEEK) Recreational Drug Use: No Smoking Status: Current Everyday Smoker (1 03/31 PPD) Type Used: Cigarettes (03/31 PPD) 2nd Hand Smoke Exposure: Yes Recent Foreign Travel: No Contact w/Someone Who Travel: No Recent Infectious Disease Expo: No Recent Hopitalizations: Yes Immunizations Up To Date Date of Pneumonia Vaccine: Nov 28, 2016 Seasonal Allergies Seasonal Allergies: No Surgeries History of Surgeries: Yes (LEFT HIP REPLACEMENT; LEFT KNEE/PATELLA; MULTIPLE SURGERIES LEFT LEG) Surgeries: Orthopedic Respiratory History of Respiratory Disorde: Yes (STATES HE WAS ON VENT IN "FELL IN A GRAIN BIN";INTUBATED 02/2018) Respiratory Disorders: COPD Cardiovascular History of Cardiac Disorders: Yes Cardiac Disorders: Chronic Edema/Swelling, Deep Vein Thrombosis, High Ch olesterol, Hypertension Neurological History of Neurological Disord: Yes Neurological Disorders: 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 SURGERIES;L KNEE/PATELLA SX;LEFT HIP REPLACEMENT) Musculoskeletal Disorders: Chronic Back Pain, Fractures Endocrine History of Endocrine Disorders: Yes Endocrine Disorders: Diabetes, Insulin dep HEENT History of HEENT Disorders: Yes Hearing Impairment: Hard of Hearing Cancer History of Cancer: No Psychosocial History of Psychiatric Problem: No Integumentary History of Skin or Integumenta: Yes (CELLULITIS OF LEGS) Blood Transfusions History of Blood Disorders: Yes (DVT'S) Family Medical History Significant Family History: Diabetes Family Medial History: Neoplasm G8 BROTHER daughter Review of Systems-General Constitutional: dizziness, malaise, weakness EENTM: No blurred vision, No mouth pain, No mouth swelling, No epistaxis Respiratory: No cough; dyspnea on exertion, short of breath Cardiovascular: No chest pain, No palpitations Gastrointestinal: abdominal pain; No jaundice, No melena; nausea, vomiting Genitourinary: No dysuria, No frequency, No hematuria Musculoskeletal: joint pain, joint swelling, muscle pain, muscle stiffness, muscle cramps, muscle weakness Skin: No change in color, No change in hair/nails Psychiatric/Neurological: Denies Anxiety, Denies Depressed, Denies Seizure, Denies Tremors Other pt denies any hx of abnormal bleeding or bruising Physical Exam-General Problems Physical Exam Vital Signs Vital Signs - First Documented 05/04/19 05/04/19 05/05/19 17:58 19:25 11:24 Temp 36.4 Pulse 79 Resp 24 B/P (MAP) 176/134 (148) Pulse Ox 99 O2 Delivery Room Air O2 Flow Rate 2.50 FiO2 32 Capillary Refill : Less Than 3 SecondsLess Than 3 Seconds General Appearance: no apparent distress, obese (morbidly) Eyes: Bilateral Eye PERRL, Bilateral Eye EOMI HEENT: pharynx normal; No scleral icterus (R), No scleral icterus (L) Neck: non-tender, supple Respiratory: lungs clear, normal breath sounds, no respiratory distress, no accessory muscle use Cardiovascular: regular rate, rhythm, no murmur Gastrointestinal: normal bowel sounds, non tender, soft, no organomegaly, no pulsatile mass Back: no CVA tenderness, no vertebral tenderness Extremities: normal range of motion (at knees, decreased at hips), no pedal edema, no calf tenderness 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, alert, normal mood/affect, oriented x 3 Skin: normal color, warm/dry Lymphatic: no adenopathy (neck, axilla or groin) Data Review Labs Laboratory Tests 05/05/19 21:02: Glucometer 330H 05/06/19 05:29: Glucometer 265H 05/06/19 07:50: White Blood Count 15.2H, Red Blood Count 4.57, Hemoglobin 13.9, Hematocrit 42, Mean Corpuscular Volume 92, Mean Corpuscular Hemoglobin 30, Mean Corpuscular Hemoglobin Concent 33, Red Cell Distribution Width 15.7H, Platelet Count 297, Mean Platelet Volume 9.3, Neutrophils (%) (Auto) 88H, Lymphocytes (%) (Auto) 5L, Monocytes (%) (Auto) 7, Eosinophils (%) (Auto) 0, Basophils (%) (Auto) 0, Neutrophils # (Auto) 13.3H, Lymphocytes # (Auto) 0.8L, Monocytes # (Auto) 1.1H, Eosinophils # (Auto) 0.0, Basophils # (Auto) 0.0, Sodium Level 132L, Potassium Level 4.0, Chloride Level 94L, Carbon Dioxide Level 27, Anion Gap 11, Blood Urea Nitrogen 13, Creatinine 0.75, Estimat Glomerular Filtration Rate > 60, BUN/Creatinine Ratio 17, Glucose Level 269H, Calcium Level 8.6, Magnesium Level 1.8 05/06/19 10:55: Glucometer 274H 05/06/19 16:12: Glucometer 199H Microbiology 05/04/19 Blood Culture - Preliminary, Resulted No growth 05/04/19 Influenza Types A,B Antigen (DAHSA) - Final, Complete Assessment/Plan Assessment/Plan Assessment/Plan Nausea and Vomiting Ileus - resolved DM - uncontrolled MO COPD Pt had N/V and then NGT placed last night; they got out 1000mls but pt pulled NGT out. He is doing fine today, with no signs of problems (tolerating clears with flatus). Would recommend monitoring and if he begins having trouble again; then may need a AAS vs SBFT or even CT. Pt had no questions. Clinical Quality Measures DVT/VTE Risk/Contraindication: Risk Factor Score Per Nursin RFS Level Per Nursing on Admit: 4+=Very High MAZIN FITZPATRICK DO May 06, 2019 17:38
[2019-05-06] MEDS: ENOXAPARIN 40 MG/0.4 ML (LOVENOX) SYR SC SCH (20:46)
[2019-05-06] MEDS: meTOprolol TARTRATE 50 MG (LOPRESSOR) TAB PO SCH (20:46)
[2019-05-06] MEDS: fentaNYL INJECTION 100 MCG/2 ML AMP IV PRN (20:47)
--- NOTE | 2019-05-06 22:06 | NUR ---
PATIENT HAVING N/V AND A "BURNING" SENSATION IN HIS STOMACH. ZOFRAN IV AND PHENERGAN IV HAVE BOTH BEEN TRIED, WHICH ONLY SEEMED TO HELPED WITH THE N/V, HOWEVER, THE "BURNING" SENSATION STILL REMAINS. THIS RN SPOKE WITH DR. VELÁZQUEZ ABOUT THE ISSUE AND ASKED IF I COULD TRY PROTONIX IV OR FAMOTIDINE IV TO SEE IF IT WAS RELATED TO ACID REFLUX. NEW ORDER FOR PROTONIX 40 MG IV X1 NOW.
[2019-05-06] MEDS ORDERED: PANTOPRAZOLE 40 MG (PROTONIX) VIAL IV ONE (22:15)
[2019-05-07 00:15] VITALS: BP 148/74
[2019-05-07 04:00] VITALS: BP 151/75
[2019-05-07] MEDS: inSUlin ASPART (NovoLOG) 1 UNIT/0.01 ML (CHARGE PER UNIT) SC SCH ×5 (06:21→21:00)
[2019-05-07] MEDS: predniSONE 20 MG TAB PO SCH (06:50)
[2019-05-07] MEDS: metFORMIN 500 MG (GLUCOPHAGE) TAB PO SCH ×2 (06:50→16:57)
[2019-05-07] MEDS: CATHETER FLUSH 10 ML SYR IV SCH ×3 (06:51→20:21)
[2019-05-07 07:57] LABS: BASOPHILS % (AUTO) 0 % (0-10); EOSINOPHILS % (AUTO) 0 % (0-10); HEMATOCRIT 41 % (40-54); HEMOGLOBIN 13.1 G/DL (13.3-17.7); LYMPHOCYTES # (AUTO) 1.9 X 10^3 (1.0-4.0); LYMPHOCYTES % (AUTO) 14 % (12-44); MEAN CORPUSCULAR HEMOGLOBIN 30 PG (25-34); MEAN CORPUSCULAR HGB CONC 32 G/DL (32-36); MEAN CORPUSCULAR VOLUME 95 FL (80-99); MEAN PLATELET VOLUME 9.2 FL (7.4-10.4); MONOCYTES # (AUTO) 1.2 X 10^3 (0.0-1.0); MONOCYTES % (AUTO) 9 % (0-12); NEUTROPHILS # (AUTO) 10.6 X 10^3 (1.8-7.8); NEUTROPHILS % (AUTO) 77 % (42-75); PLATELET COUNT 281 10^3/uL (130-400); WHITE BLOOD COUNT 13.7 10^3/uL (4.3-11.0)
[2019-05-07] MEDS: PANTOPRAZOLE 40 MG (PROTONIX) TAB PO SCH ×2 (08:14→20:21)
[2019-05-07] MEDS: ENOXAPARIN 40 MG/0.4 ML (LOVENOX) SYR SC SCH ×2 (08:14→20:21)
[2019-05-07] MEDS: meTOprolol TARTRATE 50 MG (LOPRESSOR) TAB PO SCH ×2 (08:15→20:21)
[2019-05-07] MEDS: lisINopril 40 MG (PRINIVIL) TABLET PO SCH (08:15)
[2019-05-07] MEDS: FUROSEMIDE 40 MG (LASIX) TAB PO SCH ×3 (08:15→12:20)
[2019-05-07] MEDS: GABAPENTIN 600 MG (NEURONTIN) TAB PO SCH ×3 (08:15→20:21)
[2019-05-07 08:16] LABS: BUN/CREATININE RATIO 15; CALCIUM 8.4 MG/DL (8.5-10.1); CARBON DIOXIDE 30 MMOL/L (21-32); CHLORIDE 96 MMOL/L (98-107); CREATININE SERUM 0.67 MG/DL (0.60-1.30); GFR ESTIMATED > 60; GLUCOSE 125 MG/DL (70-105); POTASSIUM 3.8 MMOL/L (3.6-5.0); SODIUM 134 MMOL/L (135-145)
[2019-05-07 08:30] VITALS: BP 131/68
--- NOTE | 2019-05-07 09:40 | Pulmonary Progress Note ---
Subjective Date Seen by a Provider: May 07, 2019 Time Seen by a Provider: 09:40 Sepsis Event Evaluation Height, Weight, BMI Height: 6'3.00" Weight: 435lbs. 3.0oz. [id number]; 44.70 BMI Method:Stated Focused Exam Lactate Level 05/04/19 18:54: Lactic Acid Level 1.37 Exam Exam Vital Signs Date Time Temp Pulse Resp B/P (MAP) Pulse Ox O2 Delivery O2 Flow Rate FiO2 05/07/19 08:30 36.4 90 22 131/68 (89) 98 Nasal Cannula 2.00 05/07/19 07:00 82 05/07/19 04:00 36.6 85 22 151/75 (100) 96 Nasal Cannula 2.00 05/07/19 01:00 81 05/07/19 00:15 36.5 78 22 148/74 (98) 94 Nasal Cannula 2.00 05/06/19 20:30 36.4 80 22 166/96 (119) 96 Nasal Cannula 2.00 05/06/19 20:00 96 Nasal Cannula 2.00 05/06/19 19:00 82 05/06/19 16:11 36.6 83 22 146/54 (84) 98 Nasal Cannula 2.00 05/06/19 14:33 98 2.00 05/06/19 12:44 96 05/06/19 12:00 36.7 99 20 151/73 (99) 96 Nasal Cannula 2.00 05/06/19 10:29 92 Nasal Cannula 2.00 I & O 05/07/19 07:00 Intake Total 2110 ml Output Total 2000 ml Balance 110 ml Height & Weight Height: 6'3.00" Weight: 435lbs. 3.0oz. [id number]; 44.70 BMI Method:Stated General Appearance: No Apparent Distress, Obese HEENT: PERRL/EOMI, Pharynx Normal Neck: Normal Inspection, Supple Respiratory: No Respiratory Distress, Rhonci, Wheezing Cardiovascular: Regular Rate, Rhythm, No Murmur Capillary Refill: Less Than 3 Seconds Gastrointestinal: normal bowel sounds, non tender, soft, no organomegaly, no pulsatile mass Extremity: Normal Inspection, Non Tender, Pedal Edema Neurologic/Psychiatric: Alert, Oriented x3, No Motor/Sensory Deficits, Normal Mood/Affect Skin: Normal Color, Warm/Dry Results Lab Laboratory Tests 2/7/20 07:50 05/07/19 07:20 Assessment/Plan Assessment/Plan Debility wheelchair dependent s/p resulting in hip dislocation -Ortho following -Inpt rehab consulted COPDAE with hypoxia -Duonebs -Prednisone -Influenza is negative Hyponatremia -monitor DM II HTN Morbid obesity SWATI MCKENZIE DO May 07, 2019 09:40
--- NOTE | 2019-05-07 10:51 | Progress Note - Hospitalist ---
Subjective HPI/CC On Admission Date Seen by Provider: May 07, 2019 Time Seen by Provider: 10:45 Manoj Guerrier is a 63-year-old male with past medical history of hypertension, diabetes, COPD, current smoker, hip replacement with chronic dislocation, wheelchair dependent, who presented from home with a fall from his wheelchair. He reports that he was going into the bathroom and his electric wheelchair tipped forward and he fell into a wall and slid down to the floor. He denies hitting his head. He denies any loss of consciousness. He denies any lightheadedness or dizziness. He was not having any issues prior to the fall. He does report that he was unable to get up. It took several be able to assist him out of his house to the ambulance. He currently does not have a primary care physician. He gets his care through the [place]. He says that he is supposed to establish with a physician in [place]. He is a current half pack a day smoker. Subjective/Events-last exam He reports feeling nauseous this morning. He says that he threw up some water overnight. He reports feeling a burning sensation in belly. He denies any abdominal pain at this time. He denies any shortness of breath. He denies any fevers or chills. He denies any diarrhea. He has no other complaints or concerns. Focused Exam Lactate Level 05/04/19 18:54: Lactic Acid Level 1.37 Objective Exam Vital Signs Vital Signs Date Time Temp Pulse Resp B/P (MAP) Pulse Ox O2 Delivery O2 Flow Rate FiO2 05/07/19 08:30 36.4 90 22 131/68 (89) 98 Nasal Cannula 2.00 05/05/19 11:24 32 Capillary Refill : Less Than 3 SecondsLess Than 3 Seconds General Appearance: No Apparent Distress, Obese HEENT: PERRL/EOMI, Pharynx Normal Neck: Normal Inspection, Supple Respiratory: No Respiratory Distress, Rhonci, Wheezing Cardiovascular: Regular Rate, Rhythm, Systolic Murmur Gastrointestinal: Normal Bowel Sounds, Non Tender, Soft Extremity: Normal Inspection, Non Tender, Pedal Edema Neurologic/Psychiatric: Alert, Oriented x3, No Motor/Sensory Deficits, Normal Mood/Affect Skin: Warm/Dry, Other (Venous stasis dermatitis) Results/Procedures Lab Laboratory Tests 05/07/19 07:20 Patient resulted labs reviewed. Imaging: Reviewed Imaging Report Assessment/Plan Assessment and Plan Assess & Plan/Chief Complaint Nausea and vomiting GERD No signs of bowel obstruction Gen. surgery consulted, appreciate assistance anti-emetics ordered Started on PPI Ground-level fall Hip dislocation Debility Wheelchair dependent Fall from wheelchair at home CT revealed hip dislocation Orthopedic surgery consulted, dislocation appears chronic, no surgical intervention needed PT/OT consulted will likely require fci for rehabilitation on discharge Social work consulted, appreciate assistance COPD exacerbation Acute hypoxic respiratory failure continue Prednisone MAT protocol Type II diabetes mellitus with hyperglycemia Sliding scale insulin continue home metformin continue Levemir Hypertension continue lisinopril Morbid obesity BMI 45.2, clinically significant, no acute management needs DVT prophylaxis: Lovenox Diagnosis/Problems Diagnosis/Problems (1) Wheelchair dependent Status: Chronic (2) Falls Status: Acute Qualifiers: Encounter type: initial encounter Qualified Codes: W19.XXXA - Unspecified fall, initial encounter (3) HTN (hypertension) Status: Acute Qualifiers: Hypertension type: essential hypertension Qualified Codes: I10 - Essential (primary) hypertension (4) Uncontrolled type 2 diabetes mellitus Status: Acute Qualifiers: Glycemic state: with hyperglycemia Qualified Codes: E11.65 - Type 2 diabetes mellitus with hyperglycemia (5) Hyponatremia Status: Acute (6) Acute respiratory failure with hypoxia Status: Acute (7) COPD exacerbation Status: Acute (8) Morbid obesity Status: Acute (9) Nausea and vomiting (10) GERD (gastroesophageal reflux disease) Clinical Quality Measures DVT/VTE Risk/Contraindication: Risk Factor Score Per Nursin RFS Level Per Nursing on Admit: 4+=Very High TRACIE VELÁZQUEZ MD May 07, 2019 10:51
[2019-05-07 11:48] VITALS: BP 141/82
--- NOTE | 2019-05-07 12:16 | NUR ---
Patient refused 1100 insulin and 1200 furosemide. While scanning medications patient was asking about discharge plans. I informed patient Dr. Hernandez did not feel patient was ready to be discharged this date. Patient became agitated and threw pill cup at this RN and states "get out I'm tired of this shit". Will continue to monitor.
--- NOTE | 2019-05-07 13:28 | Progress Note - Surgery ---
Subjective Time Seen by a Provider: 13:01 Subjective/Events-last exam Pt seen and examined, states he has not any vomiting and does not feel nauseous at this time. He is mad because he doesn't get to go home. Nurse states he did vomit up meds earlier. Review of Systems Pulmonary: Dyspnea, Cough Cardiovascular: No: Chest Pain, Palpitations Gastrointestinal: Nausea, Vomiting; No: Abdominal Pain Focused Exam Lactate Level 05/04/19 18:54: Lactic Acid Level 1.37 Objective Exam Vital Signs Date Time Temp Pulse Resp B/P (MAP) Pulse Ox O2 Delivery O2 Flow Rate FiO2 05/07/19 12:41 76 05/07/19 11:48 78 22 141/82 (101) 98 Nasal Cannula 2.00 05/07/19 08:30 36.4 90 22 131/68 (89) 98 Nasal Cannula 2.00 05/07/19 08:00 98 Nasal Cannula 2.00 05/07/19 07:00 82 05/07/19 04:00 36.6 85 22 151/75 (100) 96 Nasal Cannula 2.00 05/07/19 01:00 81 05/07/19 00:15 36.5 78 22 148/74 (98) 94 Nasal Cannula 2.00 05/06/19 20:30 36.4 80 22 166/96 (119) 96 Nasal Cannula 2.00 05/06/19 20:00 96 Nasal Cannula 2.00 05/06/19 19:00 82 05/06/19 16:11 36.6 83 22 146/54 (84) 98 Nasal Cannula 2.00 05/06/19 14:33 98 2.00 I & O 05/07/19 07:00 Intake Total 2110 ml Output Total 2000 ml Balance 110 ml Capillary Refill : Less Than 3 SecondsLess Than 3 Seconds General Appearance: No Apparent Distress, Obese HEENT: PERRL/EOMI, Pharynx Normal Respiratory: No Respiratory Distress, Rhonci, Wheezing Cardiovascular: Regular Rate, Rhythm, Systolic Murmur Gastrointestinal: normal bowel sounds, non tender, soft, no organomegaly Extremity: Pedal Edema Neurologic/Psychiatric: Alert, Oriented x3, No Motor/Sensory Deficits, Normal Mood/Affect Skin: Warm/Dry, Other (Venous stasis dermatitis) Results Lab Laboratory Tests 05/06/19 16:12: Glucometer 199H 05/06/19 20:51: Glucometer 162H 05/07/19 06:19: Glucometer 130H 05/07/19 07:20: White Blood Count 13.7H, Red Blood Count 4.34L, Hemoglobin 13.1L, Hematocrit 41, Mean Corpuscular Volume 95, Mean Corpuscular Hemoglobin 30, Mean Corpuscular Hemoglobin Concent 32, Red Cell Distribution Width 16.0H, Platelet Count 281, Mean Platelet Volume 9.2, Neutrophils (%) (Auto) 77H, Lymphocytes (%) (Auto) 14, Monocytes (%) (Auto) 9, Eosinophils (%) (Auto) 0, Basophils (%) (Auto) 0, Neut rophils # (Auto) 10.6H, Lymphocytes # (Auto) 1.9, Monocytes # (Auto) 1.2H, Eosinophils # (Auto) 0.0, Basophils # (Auto) 0.0, Sodium Level 134L, Potassium Level 3.8, Chloride Level 96L, Carbon Dioxide Level 30, Anion Gap 8, Blood Urea Nitrogen 10, Creatinine 0.67, Estimat Glomerular Filtration Rate > 60, BUN/Cr eatinine Ratio 15, Glucose Level 125H, Calcium Level 8.4L 05/07/19 11:49: Glucometer 202H Microbiology 05/04/19 Blood Culture - Preliminary, Resulted No growth 05/04/19 Influenza Types A,B Antigen (DASHA) - Final, Complete Assessment/Plan Assessment/Plan Assessment/Plan Nausea and Vomiting Ileus - resolved DM - uncontrolled MO COPD Pt is eating without problems (except he wants more food) and states he is doing fine today. Pt ok to go home from surgery standpoint, will sign off. Clinical Quality Measures DVT/VTE Risk/Contraindication: Risk Factor Score Per Nursin RFS Level Per Nursing on Admit: 4+=Very High MAZIN FITZPATRICK DO May 07, 2019 13:28
[2019-05-07 16:45] VITALS: BP 151/76
[2019-05-07] MEDS: ONDANSETRON 4 MG/2 ML (SDV) Z0FRAN IV PRN (20:21)
[2019-05-07] MEDS: fentaNYL INJECTION 100 MCG/2 ML AMP IV PRN (20:21)
[2019-05-07 20:30] VITALS: BP 144/78
[2019-05-08] VITALS (8 sets, daily range): BP systolic 129–165; BP diastolic 67–90
[2019-05-08] MEDS: RT-ALBUTEROL/IPRATROPIUM 3 ML (DUONEB) VIAL INH SCH ×9 (01:58→23:51)
[2019-05-08] MEDS: CATHETER FLUSH 10 ML SYR IV SCH ×3 (05:27→21:04)
[2019-05-08 05:38] LABS: BUN/CREATININE RATIO 17; CALCIUM 8.2 MG/DL (8.5-10.1); CARBON DIOXIDE 27 MMOL/L (21-32); CHLORIDE 97 MMOL/L (98-107); CREATININE SERUM 0.65 MG/DL (0.60-1.30); GFR ESTIMATED > 60; GLUCOSE 113 MG/DL (70-105); MAGNESIUM 1.7 MG/DL (1.6-2.4); POTASSIUM 3.9 MMOL/L (3.6-5.0); SODIUM 133 MMOL/L (135-145)
[2019-05-08] MEDS: inSUlin ASPART (NovoLOG) 1 UNIT/0.01 ML (CHARGE PER UNIT) SC SCH ×4 (05:43→20:48)
[2019-05-08] MEDS: predniSONE 20 MG TAB PO SCH (05:48)
[2019-05-08] MEDS: metFORMIN 500 MG (GLUCOPHAGE) TAB PO SCH ×2 (05:48→16:00)
[2019-05-08] MEDS: FUROSEMIDE 40 MG (LASIX) TAB PO SCH ×2 (07:46→12:31)
[2019-05-08] MEDS: MAGNESIUM 1 GM/100 ML IVPB 100 ML IV SCH ×2 (07:46→07:59)
[2019-05-08] MEDS: ENOXAPARIN 40 MG/0.4 ML (LOVENOX) SYR SC SCH ×2 (08:00→21:03)
[2019-05-08] MEDS: lisINopril 40 MG (PRINIVIL) TABLET PO SCH (08:00)
[2019-05-08] MEDS: meTOprolol TARTRATE 50 MG (LOPRESSOR) TAB PO SCH ×2 (08:00→21:03)
[2019-05-08] MEDS: GABAPENTIN 600 MG (NEURONTIN) TAB PO SCH ×3 (08:00→21:03)
[2019-05-08] MEDS: PANTOPRAZOLE 40 MG (PROTONIX) TAB PO SCH ×2 (08:00→21:03)
--- NOTE | 2019-05-08 11:46 | Progress Note - Hospitalist ---
Subjective HPI/CC On Admission Date Seen by Provider: May 08, 2019 Time Seen by Provider: 09:45 Manoj Guerrier is a 63-year-old male with past medical history of hypertension, diabetes, COPD, current smoker, hip replacement with chronic dislocation, wheelchair dependent, who presented from home with a fall from his wheelchair. He reports that he was going into the bathroom and his electric wheelchair tipped forward and he fell into a wall and slid down to the floor. He denies hitting his head. He denies any loss of consciousness. He denies any lightheadedness or dizziness. He was not having any issues prior to the fall. He does report that he was unable to get up. It took several be able to assist him out of his house to the ambulance. He currently does not have a primary care physician. He gets his care through the [place]. He says that he is supposed to establish with a physician in [place]. He is a current half pack a day smoker. Subjective/Events-last exam He reports that his leg feels swollen. He denies any nausea or vomiting. He denies any abdominal pain. He denies any fevers or chills. He denies any chest pain or shortness of breath. He has no other complaints or concerns. Objective Exam Vital Signs Vital Signs Date Time Temp Pulse Resp B/P (MAP) Pulse Ox O2 Delivery O2 Flow Rate FiO2 05/08/19 11:17 94 Nasal Cannula 2.00 05/08/19 08:34 36.9 95 22 140/70 (93) 05/05/19 11:24 32 Capillary Refill : Less Than 3 SecondsLess Than 3 Seconds General Appearance: No Apparent Distress, Obese Respiratory: Lungs Clear, Normal Breath Sounds, No Respiratory Distress Cardiovascular: Regular Rate, Rhythm, No Murmur Gastrointestinal: Normal Bowel Sounds, Non Tender, Soft Extremity: Non Tender, Pedal Edema, Swelling, Other (venous stasis dermatitis) Neurologic/Psychiatric: Alert, Oriented x3, Depressed Affect Results/Procedures Lab Laboratory Tests 05/08/19 04:47 Patient resulted labs reviewed. Imaging: Reviewed Imaging Report Assessment/Plan Assessment and Plan Assess & Plan/Chief Complaint Ground-level fall Hip dislocation Debility Wheelchair dependent Fall from wheelchair at home CT revealed hip dislocation Orthopedic surgery consulted, dislocation appears chronic, no surgical intervention needed PT/OT consulted will likely require fci for rehabilitation on discharge Social work consulted, appreciate assistance COPD exacerbation Acute hypoxic respiratory failure continue Prednisone MAT protocol Type II diabetes mellitus with hyperglycemia Sliding scale insulin continue metformin continue Levemir GERD continue PPI Hypertension continue lisinopril Morbid obesity BMI 46.7, clinically significant, no acute management needs DVT prophylaxis: Lovenox Nausea and vomiting, resolved Diagnosis/Problems Diagnosis/Problems (1) Wheelchair dependent Status: Chronic (2) Falls Status: Acute Qualifiers: Encounter type: initial encounter Qualified Codes: W19.XXXA - Unspecified fall, initial encounter (3) HTN (hypertension) Status: Acute Qualifiers: Hypertension type: essential hypertension Qualified Codes: I10 - Essential (primary) hypertension (4) Uncontrolled type 2 diabetes mellitus Status: Acute Qualifiers: Glycemic state: with hyperglycemia Qualified Codes: E11.65 - Type 2 diabetes mellitus with hyperglycemia (5) Hyponatremia Status: Acute (6) Acute respiratory failure with hypoxia Status: Acute (7) COPD exacerbation Status: Acute (8) Morbid obesity Status: Acute (9) Nausea and vomiting (10) GERD (gastroesophageal reflux disease) Clinical Quality Measures DVT/VTE Risk/Contraindication: Risk Factor Score Per Nursin RFS Level Per Nursing on Admit: 4+=Very High TRACIE VELÁZQUEZ MD May 08, 2019 11:46
[2019-05-08] MEDS: SALINE NASAL SPRAY (OCEAN) 45 ML BTL SCH ×3 (12:32→21:03)
[2019-05-08] MEDS: ACETAMINOPHEN 500 MG TAB (TYLENOL) PO PRN (16:51)
[2019-05-09] VITALS: BP 166/84
[2019-05-09 04:00] VITALS: BP 140/86
[2019-05-09] MEDS: metFORMIN 500 MG (GLUCOPHAGE) TAB PO SCH ×2 (04:09→16:29)
[2019-05-09] MEDS: CATHETER FLUSH 10 ML SYR IV SCH ×3 (04:09→20:51)
[2019-05-09] MEDS: predniSONE 20 MG TAB PO SCH (04:10)
[2019-05-09] MEDS: ACETAMINOPHEN 500 MG TAB (TYLENOL) PO PRN (04:10)
[2019-05-09 05:31] LABS: BUN/CREATININE RATIO 16; CALCIUM 8.3 MG/DL (8.5-10.1); CARBON DIOXIDE 27 MMOL/L (21-32); CHLORIDE 97 MMOL/L (98-107); CREATININE SERUM 0.68 MG/DL (0.60-1.30); GFR ESTIMATED > 60; GLUCOSE 111 MG/DL (70-105); POTASSIUM 3.7 MMOL/L (3.6-5.0); SODIUM 134 MMOL/L (135-145)
[2019-05-09] MEDS: inSUlin ASPART (NovoLOG) 1 UNIT/0.01 ML (CHARGE PER UNIT) SC SCH ×4 (05:39→20:46)
[2019-05-09] MEDS: RT-ALBUTEROL/IPRATROPIUM 3 ML (DUONEB) VIAL INH SCH ×4 (06:46→18:27)
[2019-05-09 08:02] VITALS: BP 163/87
--- NOTE | 2019-05-09 08:40 | Diagnostic Imaging Report ---
Clinical indication: Patient with leg swelling. Comparison: None Procedure: Real-time bilateral lower extremity venous Doppler duplex evaluation is performed from the inguinal region through the popliteal fossa. The calf venous structures are also evaluated. Findings: The deep venous system is well visualized and is easily compressible. There is no evidence of deep venous thrombosis, valvular incompetence, or significant collateral circulation. Impression: There is no ultrasound Doppler evidence of deep venous thrombosis in the bilateral lower extremities. Dictated by: Dictated on workstation # [id number]
[2019-05-09] MEDS: PANTOPRAZOLE 40 MG (PROTONIX) TAB PO SCH ×2 (08:44→20:45)
[2019-05-09] MEDS: lisINopril 40 MG (PRINIVIL) TABLET PO SCH (08:44)
[2019-05-09] MEDS: meTOprolol TARTRATE 50 MG (LOPRESSOR) TAB PO SCH ×2 (08:44→20:45)
[2019-05-09] MEDS: GABAPENTIN 600 MG (NEURONTIN) TAB PO SCH ×4 (08:44→20:45)
[2019-05-09] MEDS: FUROSEMIDE 40 MG (LASIX) TAB PO SCH ×3 (08:44→14:16)
[2019-05-09] MEDS: ENOXAPARIN 40 MG/0.4 ML (LOVENOX) SYR SC SCH ×2 (08:45→20:46)
[2019-05-09] MEDS: SALINE NASAL SPRAY (OCEAN) 45 ML BTL SCH ×4 (08:45→20:45)
--- NOTE | 2019-05-09 10:31 | Occupational Ther Daily Note ---
OT Current Status-Daily Note Subjective Pt alert, sitting EOB. Pt agrees to therapy. No c/o pain at this time. Mental Status/Objective Patient Orientation: Person, Place, Time, Situation Attachments: [place] Catheter, IV, Oxygen ADL-Treatment Pt sat EOB independently. SBA for EOB to BSC transfer. Pt requested to take off hospital gown, nrsg assisted due to telemetry and oxygen tubing. Pt took in creased time to finish on toilet. After therapy, pt sitting on BSC with call light/phone in reach. Nrsg aware of pt's status. All needs met in room. Therapy Code Descriptions/Definitions Functional [place] Measure: 0=Not Assessed/NA 4=Minimal Assistance 1=Total Assistance 5=Supervision or Setup 2=Maximal Assistance 6=Modified [place] 3=Moderate Assistance 7=Complete IndependenceSCALE: Activities may be completed with or without assistive devices. 8-Pnsfbhjlgp-rxczwku completes the activity by him/herself with no assistance from a helper. 5-Set-up or Clean-up Assistance-helper sets up or cleans up; patient completes activity. [place] assists only prior to or following the activity. 4-Supervision or Touching Assistance-helper provides verbal cues and/or touching/steadying and/or contact guard assistance as patient completes activity. Assistance may be provided throughout the activity or intermittently. 3-Partial/Moderate Assistance-helper does LESS THAN HALF the effort. [place] lifts, holds or supports trunk or limbs, but provides less than half the effort. 2-Substantial/Maximal Assistance-helper does MORE THAN HALF the effort. [place] lifts or holds trunk or limbs and provides more than half the effort. 3-Knarvjiwg-qqxiun does ALL the effort. Patient does none of the effort to complete the activity. Or, the assistance of 2 or more helpers is required for the patient to complete the activity. If activity was not attempted, code reason: 7-Patient Refused. 9-Not Applicable-not attempted and the patient did not perform the activity before the current illness, exacerbation or injury. 10-Not Attempted due to Environmental Limitations-(lack of equipment, weather restraints, etc.). 88-Not Attempted due to Medical Conditions or Safety Concerns. OT Lsw Goals Lsw Goals Time Frame: May 13, 2019 Eating (QC): 6 Oral Hygiene (QC): 6 Toileting Hygiene (QC): 6 Shower/Bathe Self (QC): 6 Upper Body Dressing (QC): 6 Lower Body Dressing (QC): 6 On/Off Footwear (QC): 6 1=Demonstrate adherence to instructed precautions during ADL tasks. 2=Patient will verbalize/demonstrate understanding of assistive devices/modifications for ADL. 3=Patient will improve strength/tolerance for activity to enable patient to perform ADL's. OT Education/Plan Problem List/Assessment Assessment: Decreased Activ Tolerance, Impaired Self-Care Skills Discharge Recommendations Plan/Recommendations: Continue POC Treatment Plan/Plan of Care Patient would benefit from OT for education, treatment and training to promote independence in ADL's, mobility, safety and/or upper extremity function for ADL's. Plan of Care: ADL Retraining, Functional Mobility, UE Funct Exercise/Act Treatment Duration: May 13, 2019 Frequency: 5 times per week Estimated Hrs Per Day: .25 hour per day Agreement: Yes Rehab Potential: Fair Time/GCodes Start Time: 10:10 Stop Time: 10:20 Total Time Billed (hr/min): 10 Billed Treatment Time 1 visit-ADL 1 (10 min) CORA PALACIOS May 09, 2019 10:31
[2019-05-09 11:57] VITALS: BP 147/69
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
--- NOTE | 2019-05-09 14:56 | Physical Therapy Progress Note ---
Therapy Progress Note PT in to exercise patient to improve strength, however, patient declined at this time. PT will attempt in a.m. 1 ref ([id number]) DERICK CONN PT May 09, 2019 14:56
--- NOTE | 2019-05-09 15:04 | Pulmonary Progress Note ---
Subjective Time Seen by a Provider: 15:03 Sepsis Event Evaluation Height, Weight, BMI Height: 6'3.00" Weight: 435lbs. 3.0oz. 197.299637za; 44.70 BMI Method:Stated Exam Exam Vital Signs Date Time Temp Pulse Resp B/P (MAP) Pulse Ox O2 Delivery O2 Flow Rate FiO2 05/09/19 12:56 79 05/09/19 11:57 36.8 79 22 147/69 (95) 94 Nasal Cannula 2.50 05/09/19 08:02 37.1 82 20 163/87 (112) 96 Nasal Cannula 2.50 05/09/19 06:46 92 Nasal Cannula 2.00 05/09/19 06:41 69 05/09/19 04:00 36.4 72 20 140/86 (104) 99 Nasal Cannula 2.00 05/09/19 01:00 67 05/09/19 00:00 36.5 72 22 166/84 (111) 97 Nasal Cannula 2.00 05/08/19 20:45 Nasal Cannula 2.00 05/08/19 20:30 37.2 88 22 152/72 (98) 96 Nasal Cannula 2.00 05/08/19 20:00 96 Nasal Cannula 2.00 05/08/19 19:00 87 05/08/19 16:00 37.3 87 22 129/75 (93) 97 Nasal Cannula 2.50 I & O 05/09/19 07:00 Intake Total 2440 ml Output Total 4370 ml Balance -1930 ml Height & Weight Height: 6'3.00" Weight: 435lbs. 3.0oz. 197.798744ec; 44.70 BMI Method:Stated General Appearance: No Apparent Distress, Obese HEENT: PERRL/EOMI, Pharynx Normal Respiratory: Lungs Clear, Normal Breath Sounds, No Respiratory Distress Cardiovascular: Regular Rate, Rhythm, No Murmur Capillary Refill: Less Than 3 Seconds Gastrointestinal: normal bowel sounds, non tender, soft, no organomegaly Extremity: Non Tender, Pedal Edema, Swelling, Other (venous stasis dermatitis) Neurologic/Psychiatric: Alert, Oriented x3, Depressed Affect Skin: Warm/Dry, Other (Venous stasis dermatitis) Results Lab Laboratory Tests 05/08/19 04:47 05/09/19 04:35 Assessment/Plan Assessment/Plan Debility wheelchair dependent s/p resulting in hip dislocation -Ortho following -Inpt rehab consulted COPDAE with hypoxia -Duonebs -Prednisone -Influenza is negative Hyponatremia -monitor DM II HTN Morbid obesity SWATI MCKENZIE DO May 09, 2019 15:04
[2019-05-09 16:00] VITALS: BP 147/84
--- NOTE | 2019-05-09 16:03 | Progress Note - Hospitalist ---
Subjective HPI/CC On Admission Date Seen by Provider: May 09, 2019 Time Seen by Provider: 09:00 Manoj Guerrier is a 63-year-old male with past medical history of hypertension, diabetes, COPD, current smoker, hip replacement with chronic dislocation, wheelchair dependent, who presented from home with a fall from his wheelchair. He reports that he was going into the bathroom and his electric wheelchair tipped forward and he fell into a wall and slid down to the floor. He denies hitting his head. He denies any loss of consciousness. He denies any lightheadedness or dizziness. He was not having any issues prior to the fall. He does report that he was unable to get up. It took several be able to assist him out of his house to the ambulance. He currently does not have a primary care physician. He gets his care through the [facility]. He says that he is supposed to establish with a physician in [place]. He is a current half pack a day smoker. Subjective/Events-last exam Pt reports feeling better. Requesting DC home. No complaints. Discussed living conditions and recommendation for SNF but he refuses. States he just wants to go home and drink a beer and fish. He also said he will refuse home oxygen. Offered hospice but he declined. Ultimately agreed to [facility]. Also discussed treatment of the nurses and how he has to be respectful and not throw things at them. Objective Exam Vital Signs Vital Signs Date Time Temp Pulse Resp B/P (MAP) Pulse Ox O2 Delivery O2 Flow Rate FiO2 05/09/19 12:56 79 05/09/19 11:57 36.8 22 147/69 (95) 94 Nasal Cannula 2.50 05/05/19 11:24 32 Capillary Refill : Greater Than 3 SecondsGreater Than 3 Seconds General Appearance: No Apparent Distress, Chronically ill, Obese Respiratory: Lungs Clear, No Respiratory Distress Cardiovascular: Regular Rate, Rhythm, No Murmur Gastrointestinal: Normal Bowel Sounds, Soft Extremity: Swelling Neurologic/Psychiatric: Alert, Oriented x3 Skin: Other (venous stasis dermatitis) Results/Procedures Lab Laboratory Tests 05/09/19 04:35 Patient resulted labs reviewed. Imaging: Reviewed Imaging Report Assessment/Plan Assessment and Plan Assess & Plan/Chief Complaint Ground-level fall Hip dislocation Debility Wheelchair dependent Fall from wheelchair at home CT revealed hip dislocation Orthopedic surgery consulted, dislocation appears chronic, no surgical intervention needed PT/OT consulted will likely require half-way for rehabilitation on discharge but he declines and is only agreeable to [facility] Social work consulted, appreciate assistance COPD exacerbation Acute hypoxic respiratory failure continue Prednisone burst MAT protocol Type II diabetes mellitus with hyperglycemia Sliding scale insulin continue metformin continue Levemir GERD continue PPI Hypertension continue lisinopril Morbid obesity BMI 46.7, clinically significant, no acute management needs DVT prophylaxis: Lovenox Clinical Quality Measures DVT/VTE Risk/Contraindication: Risk Factor Score Per Nursin RFS Level Per Nursing on Admit: 4+=Very High TORRES OLSEN MD May 09, 2019 16:03
--- NOTE | 2019-05-09 17:04 | NUR ---
CM/SS follow up with discharge planning. The patients physician spoke with the patient this a.m. He reported to her that he would be willing to have CM/SS send a referral packet to [facility] due to it being close to home. CM/SS called and faxed a referral packet to [facility] who declined the patient due to not have a bariatric room available at this time. The patient was notified. CM/SS asked the patient if a referral could be sent to any other facilities of his choice and the patient stated "no". The patient was adamant that CM/SS could not send a senior living referral to any other facility. The patient was not willing to discuss any further discharge planning. CM/SS went back in to the room to discuss discharge plans with the patient and the patients physician. The patient was agitated and fidgeting around with objects in front of him. He stated that he is not willing to go to a senior living. The patient verbalized to this CM/SS and hospitalist that he just "want's to go home and be left alone" and that he "won't be wearing his oxygen". The patient did not feel that he was ready or willing for hospice but was open to the idea of Home Health. The patient stated he had done research on [facility] and would want this CM/SS to send a referral to [facility]. A referral packet has been sent and finalized orders will be faxed when available. No other needs at this time.
[2019-05-09 20:30] VITALS: BP 148/79
[2019-05-10] VITALS: BP 149/68
[2019-05-10 04:00] VITALS: BP 141/78
[2019-05-10] MEDS: inSUlin ASPART (NovoLOG) 1 UNIT/0.01 ML (CHARGE PER UNIT) SC SCH ×2 (06:22→12:44)
[2019-05-10] MEDS: metFORMIN 500 MG (GLUCOPHAGE) TAB PO SCH (06:25)
[2019-05-10] MEDS: predniSONE 20 MG TAB PO SCH (06:26)
[2019-05-10] MEDS: RT-ALBUTEROL/IPRATROPIUM 3 ML (DUONEB) VIAL INH SCH ×3 (07:41→13:38)
[2019-05-10] MEDS: PANTOPRAZOLE 40 MG (PROTONIX) TAB PO SCH (08:43)
[2019-05-10] MEDS: lisINopril 40 MG (PRINIVIL) TABLET PO SCH (08:43)
[2019-05-10] MEDS: meTOprolol TARTRATE 50 MG (LOPRESSOR) TAB PO SCH (08:43)
[2019-05-10] MEDS: FUROSEMIDE 40 MG (LASIX) TAB PO SCH ×2 (08:43→12:44)
[2019-05-10] MEDS: ENOXAPARIN 40 MG/0.4 ML (LOVENOX) SYR SC SCH (08:43)
[2019-05-10] MEDS: GABAPENTIN 600 MG (NEURONTIN) TAB PO SCH ×2 (08:43→12:44)
[2019-05-10 08:50] VITALS: BP 129/96
[2019-05-10] MEDS: SALINE NASAL SPRAY (OCEAN) 45 ML BTL SCH ×2 (09:00→12:44)
--- NOTE | 2019-05-10 09:13 | Occupational Ther Daily Note ---
OT Current Status-Daily Note Subjective Pt sitting EOB at start of session, agreeable to OT tx with focus on washing his hair. He did not report any pain during session. Mental Status/Objective Attachments: Oxygen ADL-Treatment Therapy Code Descriptions/Definitions Functional [place] Measure: 0=Not Assessed/NA 4=Minimal Assistance 1=Total Assistance 5=Supervision or Setup 2=Maximal Assistance 6=Modified [place] 3=Moderate Assistance 7=Complete IndependenceSCALE: Activities may be completed with or without assistive devices. 6-Khcmbonmcq-xuzwegk completes the activity by him/herself with no assistance from a helper. 5-Set-up or Clean-up Assistance-helper sets up or cleans up; patient completes activity. [place] assists only prior to or following the activity. 4-Supervision or Touching Assistance-helper provides verbal cues and/or touching/steadying and/or contact guard assistance as patient completes activity. Assistance may be provided throughout the activity or intermittently. 3-Partial/Moderate Assistance-helper does LESS THAN HALF the effort. [place] lifts, holds or supports trunk or limbs, but provides less than half the effort. 2-Substantial/Maximal Assistance-helper does MORE THAN HALF the effort. [place] lifts or holds trunk or limbs and provides more than half the effort. 7-Qlkqewfkx-qwhgut does ALL the effort. Patient does none of the effort to complete the activity. Or, the assistance of 2 or more helpers is required for the patient to complete the activity. If activity was not attempted, code reason: 7-Patient Refused. 9-Not Applicable-not attempted and the patient did not perform the activity before the current illness, exacerbation or injury. 10-Not Attempted due to Environmental Limitations-(lack of equipment, weather restraints, etc.). 88-Not Attempted due to Medical Conditions or Safety Concerns. Eating (QC): 6 (per pt report, he had no difficulties eating breakfast.) Other Treatment Pt sitting EOB. He agreed to washing his hair with a warm shower cap. OT set up for task, placing cap on pt's head, he was then able to use his hands in order to scrub his hair clean. He then used a towel to dry his hair before he brushed it. Pt completed hair washing and brushing with set up assistance. Pt required min rest breaks through the session. Post OT tx, pt seated EOB, with call light in reach and all needs met. Education OT Patient Education: Correct positioning, Energy conservation, Modified ADL techniques, Progress toward Goal/Update tx plan, Purpose of tx/functional activities Teaching Recipient: Patient Teaching Methods: Demonstration, Discussion Response to Teaching: Verbalize Understanding, Return Demonstration OT Sap Bw Consultant Goals Halfway Goals Time Frame: May 13, 2019 Eating (QC): 6 Oral Hygiene (QC): 6 Toileting Hygiene (QC): 6 Shower/Bathe Self (QC): 6 Upper Body Dressing (QC): 6 Lower Body Dressing (QC): 6 On/Off Footwear (QC): 6 1=Demonstrate adherence to instructed precautions during ADL tasks. 2=Patient will verbalize/demonstrate understanding of assistive amara dione/modifications for ADL. 3=Patient will improve strength/tolerance for activity to enable patient to perform ADL's. OT Education/Plan Problem List/Assessment Assessment: Decreased Activ Tolerance, Impaired I ADL's, Impaired Self-Care Skills Discharge Recommendations Plan/Recommendations: Continue POC Treatment Plan/Plan of Care Treatment,Training & Education: Yes Patient would benefit from OT for education, treatment and training to promote independence in ADL's, mobility, safety and/or upper extremity function for ADL 's. Plan of Care: ADL Retraining, Functional Mobility, UE Funct Exercise/Act Treatment Duration: May 13, 2019 Frequency: 5 times per week Estimated Hrs Per Day: .25 hour per day Agreement: Yes Rehab Potential: Fair Time/GCodes Start Time: 08:25 Stop Time: 08:37 Total Time Billed (hr/min): 12 Billed Treatment Time 1, ADL LENNY HUGHES OT May 10, 2019 09:13
--- NOTE | 2019-05-10 09:27 | NUR ---
DISCHARGE PLANNING: Spoke with Anthony MAS this a.m. et patient will be dismissing from the hospital on this date. He is a [facility] patient and does not follow with any local physicians. His [facility] doctor has been located out of [place] [facility], Maryellen Landon. I do not have a direct contact number for her as of yet because of the multiple transfers when I called. I left a message with that team with call back information to try et set up additional services for him s/p hospitalization. He will also need oxygen according to our testing here and I'm not sure how to set that up for him either. In addition to leaving a message with his primary care doctor I also left a message with our hospital listed [facility] O2 Coordinator, Julissa for a request of return call. Will continue to follow. Addendum: 05/10/19 at 1009 by JORGE BASS RN Spoke with O2 coordinator Julissa easley she gave me the direct phone number for Maryellen Landon office of ext [phone].
--- NOTE | 2019-05-10 09:43 | Discharge Summary ---
Diagnosis/Chief Complaint Date of Admission May 04, 2019 at 19:48 Date of Discharge Admission Diagnosis Ground-level fall with hip dislocation Primary Care No,Local Physician Discharge Diagnosis (1) Wheelchair dependent Status: Chronic (2) Falls Status: Acute (3) HTN (hypertension) Status: Acute (4) Uncontrolled type 2 diabetes mellitus Status: Acute (5) Hyponatremia Status: Acute (6) Acute respiratory failure with hypoxia Status: Acute (7) COPD exacerbation Status: Acute (8) Morbid obesity Status: Acute (9) Nausea and vomiting (10) GERD (gastroesophageal reflux disease) Discharge Summary Discharge Physical Exam Allergies: Coded Allergies: Penicillins (Verified Allergy, Unknown, 03/18/18) amitriptyline (Verified Allergy, Unknown, 03/18/18) iodine (Verified Allergy, Unknown, 03/18/18) Vitals & I&Os Vital Signs Date Time Temp Pulse Resp B/P (MAP) Pulse Ox O2 Delivery O2 Flow Rate FiO2 05/10/19 08:50 36.0 89 18 129/96 (107) 95 Nasal Cannula 2.00 05/05/19 11:24 32 Hospital Course Labs (last 24 hrs) Laboratory Tests 05/09/19 11:56: Glucometer 173H 05/09/19 15:50: Glucometer 153H 05/09/19 20:13: Glucometer 185H 05/10/19 05:48: Glucometer 130H Microbiology 05/04/19 Blood Culture - Preliminary, Resulted No growth 05/04/19 Influenza Types A,B Antigen (DASHA) - Final, Complete Patient resulted labs reviewed. Pending Labs Laboratory Tests 05/10/19 05:48: Glucometer 130 Imaging: Reviewed Imaging Report Discharge Home Medications: Active Scripts Active Reported Miralax (Polyethylene Glycol 3350) 17 Gm Powd.pack 17 Gm PO DAILY PRN Dulcolax (Bisacodyl) 5 Mg Tablet.dr 15 Mg PO DAILY PRN TAKES 3 (5MG) TABS DAILY Potassium Chloride 20 Meq Tablet.er 20 Meq PO BID Metoprolol Tartrate 100 Mg Tablet 50 Mg PO BID TAKES 1/2 (100MG) TABLET Metformin HCl 1,000 Mg Tablet 1,000 Mg PO BID Gabapentin 600 Mg Tablet 600 Mg PO TID Furosemide 40 Mg Tablet 40 Mg PO 0800,1200 Atorvastatin Calcium 80 Mg Tablet 80 Mg PO HS Tylenol Extra Strength (Acetaminophen) 500 Mg Tablet 1,000 Mg PO Q6H PRN Instructions to patient/family Please see electronic discharge instructions given to patient. Clinical Quality Measures DVT/VTE Risk/Contraindication: Risk Factor Score Per Nursin RFS Level Per Nursing on Admit: 4+=Very High Problem Qualifiers (1) Falls: Encounter type: initial encounter Qualified Codes: W19.XXXA - Unspecified fall, initial encounter (2) HTN (hypertension): Hypertension type: essential hypertension Qualified Codes: I10 - Essential (primary) hypertension (3) Uncontrolled type 2 diabetes mellitus: Glycemic state: with hyperglycemia Qualified Codes: E11.65 - Type 2 diabetes mellitus with hyperglycemia TORRES OLSEN MD May 10, 2019 09:43
[2019-05-10] MEDS ORDERED: LISI40TA PO (10:00)
--- NOTE | 2019-05-10 10:47 | NUR ---
PT PLACED ON ROOM AIR FOR HOME O2 QUALIFICATION. SPO2 DROPPED TO 92% @ REST. PT REFUSED TO WALK FOR TEST. DR OLSEN NOTIFIED. Addendum: 05/10/19 at 1223 by ROBIN SANDOVAL RT Amended: Links added.
[2019-05-10 12:18] VITALS: BP 148/70
--- NOTE | 2019-05-10 12:29 | D/C HH Face to Face Order ---
D/C Face to Face Orders Reconcile Patient Problems Problems Reviewed?: Yes Instructions for Patient [facility], Patient Instructions/FollowUp: Please continue to take your medications as written. Please follow up with your PCP in the next week to follow up this hospital stay. Physician to follow Patient: Maryellen Landon Discharge Diet for Home: Low Sodium Diet Patient Data-Allergies,Ht & Wt Patient Allergies: Coded Allergies: Penicillins (Verified Allergy, Unknown, 03/18/18) amitriptyline (Verified Allergy, Unknown, 03/18/18) iodine (Verified Allergy, Unknown, 03/18/18) Height (Feet): 6 Height (Inches): 3.00 Weight (Pounds): 435 Weight (Ounces): 3.0 Home Health Need/Face to Face Date of Face to Face: May 10, 2019 Clinical Findings: Generalized weakness and fatigue, Shortness of breath I have seen Pt [id number]: Yes Discharged To: Home Diagnosis/Conditions: COPD, debility, morbid obesity Patient is Homebound due to: Shortness of breath/distress Homebound Status Due to the above stated illness, injury or surgical procedure (medical condition or diagnosis) and associated clinical findings, the patient is homebound because of his/her inability to leave home except with aid of a supportive device and/or person AND leaving the home requires a considerable and taxing effort or is medically contraindicated. Pt req the following assistanc: Aid of another person, [facility] Nursing Orders Home Health Services Order: Nursing Services, [facility]-Evaluate & Treat, Physical Therapy-Evaluate & Treat Home Health Infusion Therapy Line Start Date: May 04, 2019 Therapy Orders Therapy Orders: OT (must have SN or PT order), Physical Therapy Therapy Specific Orders: Eval assistive deivces, Teach enviro modifications/safety, Gait training, Increase strength/endurance Certify Stmt I certify that this patient is under my care and that I, a nurse practitioner or a physician; a sales operations assistant working with me, had a face to face encounter that - meets the physician face to face encounter requirements with this patient as dated. TORRES OLSEN MD May 10, 2019 09:58
--- NOTE | 2019-05-10 15:27 | NUR ---
CM/SS discharge plan. Plan: The patient will return home today with Home Health. Home Health: [facility]. [facility]: The patients son Cain at 4-5 p.m. ([phone]) Summary: The patient was not very corporative while talking with this SS today. CM/SS attempted to set up transportation for the patient to get home but the patient was not willing to call any one he know for a ride, stated he had no money, and didn't have his phone. This CM/SS asked for the phone numbers of his children who lived close by. The patient gave SS phone numbers. His daughter Sheba's number is ([phone]). CM/SS asked to call patients son or daughter for ride. Verbalized yes. The patient stated his children would not be reliable however the patients son was willing to pick up attendant the patient today. [facility] [employer] [facility]. It needs to be [facility] which [facility] stated [facility] will work on it. No other needs at this time.
--- NOTE | 2019-05-10 16:38 | NUR ---
Pastoral Care visit.
== END 2019-05-10 16:00 | disposition home health service (06) | DRG 559 ==
LOC: EDUNIT# 17:58 → ER 17:59 → 4TH 19:48
PROVIDERS: ADMIT Internal Medicine; ATTEND Internal Medicine
DX: T84.021A Dislocation of internal left hip prosthesis, initial encounter (principal); M16.11 Unilateral primary osteoarthritis, right hip; M53.3 Sacrococcygeal disorders, not elsewhere classified; J96.01 Acute respiratory failure with hypoxia; J44.1 Chronic obstructive pulmonary disease with (acute) exacerbation; Z68.41 Body mass index [BMI] 40.0-44.9, adult; E87.1 Hypo-osmolality and hyponatremia; S00.33XA Contusion of nose, initial encounter; Z66 Do not resuscitate; K56.7 Ileus, unspecified; S00.83XA Contusion of other part of head, initial encounter; I10 Essential (primary) hypertension; E66.01 Morbid (severe) obesity due to excess calories; E11.65 Type 2 diabetes mellitus with hyperglycemia; E11.42 Type 2 diabetes mellitus with diabetic polyneuropathy; F17.210 Nicotine dependence, cigarettes, uncomplicated; I87.8 Other specified disorders of veins; R60.0 Localized edema; M54.9 Dorsalgia, unspecified; R05 Cough; K21.9 Gastro-esophageal reflux disease without esophagitis; I87.2 Venous insufficiency (chronic) (peripheral); E78.00 Pure hypercholesterolemia, unspecified; W05.0XXA Fall from non-moving wheelchair, initial encounter; Y92.002 Bathroom of unspecified non-institutional (private) residence as the place of occurrence of the external cause; Z99.3 Dependence on wheelchair; Z60.2 Problems related to living alone; Z86.718 Personal history of other venous thrombosis and embolism; Z96.642 Presence of left artificial hip joint
CPT/HCPCS: 36415; 36600; 51702; 70450; 70486; 71045; 72125; 72128; 72131; 72192; 80048; 80053; 80306; 80320; 81000; 82550; 82553; 82962; 83036; 83605; 83735; 83874; 83880; 84484; 85007; 85025; 85027; 85610; 85730; 87040; 87804; 93005; 93041; 93970; 94640; 94664; 94760; 94761; 96361; 96372; 96374